=== PATIENT | female | born 1950 | race Caucasian/White ===

== ENCOUNTER 2017-10-12 16:18 | Emergency (ER) | payer MEDICARE ==
[2017-10-12 18:57] LABS: Urine Bacteria Absent (Absent); Urine Bilirubin Negative (Negative); Urine Glucose Negative (Negative); Urine Nitrite Negative (Negative)
[2017-10-12 18:58] LABS: Hematocrit 29 % (35-47); Hemoglobin 9.5 g/dl (12.0-16.0); Mean Corpuscular HGB Conc 33 g/dl (31-36); Mean Corpuscular Hemoglobin 27 pg (27-31); Mean Corpuscular Volume 83 fL (80-97); Mean Platelet Volume 8 um3 (7.4-10.4); Red Cell Distribution Width 13 % (10.5-15); White Blood Count 4.9 10^3/ul (3.5-10.8)
[2017-10-12 19:13] LABS: Albumin 3.4 g/dL (3.2-5.2); BUN/Creatinine Ratio 18.7 (8-20); C Reactive Protein 111.97 mg/L (< 5.00); Calcium 9.2 mg/dL (8.6-10.3); EGFR African American 79.1 (>60); EGFR Non-African American 61.5 (>60); Globulin 3.8 g/dL (2-4); Magnesium 2.2 mg/dL (1.9-2.7); Potassium 3.4 mmol/L (3.5-5.0); Total Bilirubin 0.4 mg/dL (0.2-1.0); Total Protein 7.2 g/dL (6.4-8.9)
[2017-10-12 19:14] LABS: Troponin I 0.01 ng/mL (<0.04)
[2017-10-12] MEDS ORDERED: NS 0.9% 1000 ML*IV.FLUID IV ONE (19:24)
[2017-10-12 20:15] LABS: Erythrocyte Sed Rate 120 mm/Hr (0-40)
--- NOTE | 2017-10-12 21:10 | RAD ---
INDICATION: Abdominal pain. Ascites . Breast cancer. No metastasis. COMPARISON: CT September 29, 2017; ultrasound June 04, 2016 TECHNIQUE: Longitudinal and transverse scans of the right upper quadrant were obtained. Doppler interrogation of the hepatic and portal venous system was performed. FINDINGS: Liver: The liver is diffusely heterogeneous in echotexture. There is a left hepatic lobe lesion (medial segment) which is may represent a cyst. Given the clinical history, metastasis is not absolutely excluded. There has been interval increase in size of this lesion which currently measures 1.1 x 0.8 x 1.0 cm, formerly 0.7 cm in greatest dimension.The liver measures 16 cm in cephalocaudal dimension. Vessels: There is normal hepatic and portal venous flow. Bile ducts: There is no evidence of intrahepatic or extrahepatic ductal dilatation. The common duct measures 0.4 cm. Gallbladder: The sonographic appearance of the gallbladder is normal. There is no evidence of cholelithiasis, thickening of the gallbladder wall, or pericholecystic fluid. Pancreas: The visualized pancreas appears normal Right kidney: There is renal parenchymal thinning. There are no masses or calculi. There is no evidence of hydronephrosis. The right kidney measures 10.3 x 3.4 x 3.4 cm. IVC and aorta: The aorta and superior vena cava appear normal. Fluid: There is ascites. Other: None. IMPRESSION: HETEROGENEOUS LIVER WITH ENLARGING HYPOECHOIC LESION. THIS MAY OR PRESENT A CYST (SEE ABOVE). ASCITES.
[2017-10-12] MEDS ORDERED: Potassium Chlor TAB* 20 MEQ TAB.ER PO ONE (22:02)
--- NOTE | 2017-10-12 22:21 | ED ---
Raymundo Silva Nilda, scribed for France Cee MD on 10/12/17 at 1909 . Complex/Multi-Sys Presentation - HPI Summary HPI Summary: This patient is a 67 year old F presenting to [facility] with a chief complaint of feeling rotten for the past 2 weeks. On 10/06/17, pt woke up with tachycardia. Pt states she has had tachycardia and constant nonproductive cough for the past two weeks. Since 10/08/17, pt notes she has been waking up in a pool of sweat. Patient reports hemorrhoids, sporadic diarrhea, cough, fever (101 F, yesterday ), throat tightness, intermittent mild abd pain (3/10 in severity, currently), loss of appetite, dehydration, fungal infection on toe nails, muscle pain in LLE , and nausea. She denies hemoptysis and changes in breasts. Abd pain is aggravated by deep breaths and alleviated by nothing. Pt has known hx of ascites , has never had a peritoneal tap. Pt is allergic to IV CT contrast. Pt tried to go to Dr. Moss's office today, but saw that they were so busy, she left, and later decided to come to the ED because she stil did not feel well. 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 Moss's pt, has not started any chemo, has not had bxs of the bone mets), anemia, and hypokalemia. No PMHx CHF and TN. History of events: per pt, who is able to give very detailed and accurate hx with very accurate dates. On Sep 19, 1996 pt was diagnosed with left breast cancer which was treated with 2 rounds of chemo. May 01, 2015 Dr. Howard administered a CT that showed possible metastases of breast cancer. Dr. Moss (oncology) ordered bone scan that revealed metastasis to bone including sternum, pelvic area, and spine. Pt also saw Dr. Patten (pulmonary). February 2016, Dr. Calhoun (GI) saw pt. Pt has had previous appointments with Dr. Jarquin (Neuro) for muscle pain. April 2017, Dr. Guillermo (GI) noted a possible cyst on liver. On 09/22/17 Dr. Herrera ordered a blood draw for pt. On 09/29/[address] Moss (GI) ordered repeat CT of Chest and pelvic area. On 10/06/17 pt had a thyroid US. (pt has not had results of these last two studies discussed with her). - History Of Current Complaint Chief Complaint: EDGeneral Time Seen by Provider: 10/12/17 18:24 Hx Obtained From: Patient, Medical Records Onset/Duration: Sudden Onset, Lasting Days Timing: Constant Severity Currently: Mild - 3/10 in severity Severity Initially: Moderate Location: Pain At: - abd, muscles in LLE Character: Dull Aggravating Factor(s): Abd pain is aggravated by deep breaths Alleviating Factor(s): Abd pain alleviated by nothing Associated Signs And Symptoms: Positive: Weakness, Cough, Nausea, Diarrhea, Abdominal Pain, Decreased Oral Intake, Fever, Other - tachycardia, diaphoresis ( night sweats), hemorrhoids, sporadic diarrhea, cough, fever (101 F, yesterday), throat tightness, intermittent mild abd pain (3/10 in severity, currently), loss of appetite, dehydration, fungal infection on toe nails, muscle pain in LLE , and nausea. She denies hemoptysis and changes in breasts. Related History: Other - PMHx includes cysts, fibroids, left breast cancer ( receptor +) that has metastasized to bones in pelvic area, spine, and sternum, anemia, and low potassium. - Allergies/Home Medications Allergies/Adverse Reactions: Allergies Allergy/AdvReac Type Severity Reaction Status Date / Time Latex Allergy Severe Difficulty Verified 10/12/17 16:32 Breathing Cephalexin [From Keflex] Allergy Difficulty Verified 10/12/17 16:32 Breathing/Wheezing Codeine Allergy Headache Verified 10/12/17 16:32 Penicillins Allergy Difficulty Verified 10/12/17 16:32 Breathing/Wheezing Sulfa Antibiotics Allergy Hives Verified 10/12/17 16:32 Terfenadine [From Seldane] Allergy Hives Verified 10/12/17 16:32 Clarithromycin [From Biaxin] AdvReac See Comment Verified 10/12/17 16:32 Erythromycin AdvReac GI Upset Verified 10/12/17 16:32 Tetracycline AdvReac See Comment Verified 10/12/17 16:32 IV contrast Allergy Difficulty Uncoded 10/12/17 16:32 Breathing PMH/Surg Hx/FS Hx/Imm Hx Previously Healthy: No - metastatic breast CA Endocrine/Hematology History: Reports: Hx Thyroid Disease - nodules, Hx Anemia Denies: Hx Diabetes Cardiovascular History: Reports: Other Cardiovascular Problems/Disorders - low potassium Denies: Hx Congestive Heart Failure, Hx Hypertension, Hx Myocardial Infarction, Hx Pacemaker/ICD Respiratory History: Reports: Hx Asthma, Other Respiratory Problems/Disorders - has seen Dr. Patten GI History: Reports: Hx Gastroesophageal Reflux Disease, Other GI Disorders - ascites, hemorrhoids, fibroids History: Denies: Hx Dialysis, Hx Renal Disease Sensory History: Denies: Hx Hearing Aid Psychiatric History: Denies: Hx Panic Disorder - Cancer History Cancer Type, Location and Year: breast CA, metastasis to bone Hx Chemotherapy: Yes - BREAST Hx Radiation Therapy: No - Surgical History Surgery Procedure, Year, and Place: 09/1972 BENIGN LT BREAST TUMOR, 1971 TONSILS , 2003 EYE SURGERY WITH SCLERAL BUCKLE (PREVIOUSLY CLEARED REPORT IN OTHER FACILITY REPORTS), 02/01/04 HEART CATH WITH NO STENTS, LT BREAST BIOPSY, LT BREAST MASTECTOMY 1995, 02/2000 RT BREAST BIOPSY, BIOPSY ON RIGHT CLAVICLE Infectious Disease History: No Infectious Disease History: Denies: Traveled Outside the [place] in Last 30 Days - Family History Known Family History: Positive: Other - Father "strepto ananya" sepsis - Social History Alcohol Use: None Substance Use Type: Reports: None Smoking Status (MU): Never Smoked Tobacco Review of Systems Positive: Fever, Skin Diaphoresis, Other - dehydration Positive: Other - throat tightness Positive: Other - tachycardia Positive: Cough, Other - negative hemoptysis Positive: Abdominal Pain, Diarrhea, Nausea, Other - hemorrhoids, loss of appetite Positive: Other - LLE pain; negative changes in breasts Positive: Other - fungal infection on toe nails Neurological: Negative Psychological: Normal All Other Systems Reviewed And Are Negative: Yes Physical Exam Triage Information Reviewed: Yes Vital Signs On Initial Exam: Initial Vitals Temp Pulse Resp BP Pulse Ox 98.1 F 96 16 105/64 97 10/12/17 16:32 10/12/17 16:32 10/12/17 16:32 10/12/17 16:32 10/12/17 16:32 Vital Signs Reviewed: Yes Appearance: Positive: Well-Nourished, Ill-Appearing, Pain Distress Skin: Positive: Warm, Skin Color Reflects Adequate Perfusion, Other - s/p mastectomy but still with nipple on left breast. No masses or skin changes of left breast; fungal toenails bilat Head/Face: Positive: Normal Head/Face Inspection Eyes: Positive: EOMI, BRENDA, Conjunctiva Clear ENT: Positive: Pharynx normal, Other - dry mucosal membranes Neck: Positive: Supple, Nontender, No Lymphadenopathy, Other: - thyroid nonpalp Respiratory/Lung Sounds: Positive: Clear to Auscultation, Breath Sounds Present , Other - negative respiratory distress Cardiovascular: Positive: RRR, Other - brisk capillary refill, nml pulses, S1, S2. Negative: Murmur Abdomen Description: Positive: No Organomegaly, Soft, Other: - abd tender RUQ and mild diffuse tenderness of abd, no rebound; ascites not apparent by fluid wave. Negative: Bruit, CVA Tenderness (R), CVA Tenderness (L), Distended, Guarding, Hernia @, Hepatomegaly, McBurney's Point Tenderness, Peritoneal Signs , Pulsatile Mass, Splenomegaly Bowel Sounds: Positive: Present Musculoskeletal: Positive: Strength/ROM Intact, Other - no calf tenderness Neurological: Positive: Sensory/Motor Intact, Alert, Oriented to Person Place, Time, Facial Symmetry, Speech Normal, Other - normal muscle tone Psychiatric: Positive: Normal - Dieter Coma Scale Coma Scale Total: 15 Diagnostics - Vital Signs Vital Signs Temp Pulse Resp BP Pulse Ox 10/12/17 18:04 96 100 10/12/17 17:30 78 112/62 99 10/12/17 17:00 87 115/62 98 10/12/17 16:56 92 99 10/12/17 16:53 114/62 10/12/17 16:32 98.1 F 96 16 105/64 97 - Laboratory Lab Results: Lab Results 10/12/17 10/12/17 10/12/17 Range/Units 18:38 18:48 18:48 WBC (3.5-10.8) 10^3/ul RBC (4.0-5.4) 10^6/ul Hgb (12.0-16.0) g/dl Hct (35-47) % MCV (80-97) fL MCH (27-31) pg MCHC (31-36) g/dl RDW (10.5-15) % Plt Count (150-450) 10^3/ul MPV (7.4-10.4) um3 Neut % (Auto) (38-83) % Lymph % (Auto) (25-47) % [place] % (Auto) (1-9) % Eos % (Auto) (0-6) % Baso % (Auto) (0-2) % Absolute Neuts (auto) (1.5-7.7) 10^3/ul Absolute Lymphs (auto) (1.0-4.8) 10^3/ul Absolute Monos (auto) (0-0.8) 10^3/ul Absolute Eos (auto) (0-0.6) 10^3/ul Absolute Basos (auto) (0-0.2) 10^3/ul Absolute Nucleated RBC 10^3/ul Nucleated RBC % ESR (0-40) mm/Hr INR (Anticoag Therapy) (0.89-1.11) Sodium 136 (133-145) mmol/L Potassium 3.4 L (3.5-5.0) mmol/L Chloride 101 (101-111) mmol/L Carbon Dioxide 28 (22-32) mmol/L Anion Gap 7 (2-11) mmol/L BUN 17 (6-24) mg/dL Creatinine 0.91 (0.51-0.95) mg/dL Est GFR ( Amer) 79.1 (>60) Est GFR (Non-Af Amer) 61.5 (>60) BUN/Creatinine Ratio 18.7 (8-20) Glucose 106 H (70-100) mg/dL Lactic Acid (0.5-2.0) mmol/L Calcium 9.2 (8.6-10.3) mg/dL Magnesium 2.2 (1.9-2.7) mg/dL Total Bilirubin 0.40 (0.2-1.0) mg/dL AST 22 (13-39) U/L ALT 17 (7-52) U/L Alkaline Phosphatase 50 (34-104) U/L Total Creatine Kinase 40 (10-223) U/L Troponin I 0.01 (<0.04) ng/mL C-Reactive Protein 111.97 H (< 5.00) mg/L B-Natriuretic Peptide 154 H ( - 100) pg/mL Total Protein 7.2 (6.4-8.9) g/dL Albumin 3.4 (3.2-5.2) g/dL Globulin 3.8 (2-4) g/dL Albumin/Globulin Ratio 0.9 L (1-3) Amylase 27 L (29-103) U/L Lipase 36 (11.0-82.0) U/L Urine Color [place] Urine Appearance Cloudy Urine pH 5.0 (5-9) Ur Specific [place] 1.026 (1.010-1.030) Urine Protein 1+(30 mg/dl) H (Negative) Urine Ketones Negative (Negative) Urine Blood 1+ H (Negative) Urine Nitrate Negative (Negative) Urine Bilirubin Negative (Negative) Urine Urobilinogen Negative (Negative) Ur Leukocyte Esterase Trace H (Negative) Urine WBC (Auto) Trace(0-5/hpf) (Absent) Urine RBC (Auto) Trace(0-2/hpf) (Absent) Ur Squamous Epith Cells Present H (Absent) Amorphous Crystals Present H (Absent) Urine Bacteria Absent (Absent) Urine Glucose Negative (Negative) Influenza A (Rapid) (Negative) Influenza B (Rapid) (Negative) Group A Strep Rapid (Negative) 10/12/17 10/12/17 10/12/17 Range/Units 18:48 18:48 18:48 WBC 4.9 (3.5-10.8) 10^3/ul RBC 3.50 L (4.0-5.4) 10^6/ul Hgb 9.5 L (12.0-16.0) g/dl Hct 29 L (35-47) % MCV 83 (80-97) fL MCH 27 (27-31) pg MCHC 33 (31-36) g/dl RDW 13 (10.5-15) % Plt Count 401 (150-450) 10^3/ul MPV 8 (7.4-10.4) um3 Neut % (Auto) 74.7 (38-83) % Lymph % (Auto) 17.4 L (25-47) % [place] % (Auto) 7.3 (1-9) % Eos % (Auto) 0.3 (0-6) % Baso % (Auto) 0.3 (0-2) % Absolute Neuts (auto) 3.7 (1.5-7.7) 10^3/ul Absolute Lymphs (auto) 0.9 L (1.0-4.8) 10^3/ul Absolute Monos (auto) 0.4 (0-0.8) 10^3/ul Absolute Eos (auto) 0 (0-0.6) 10^3/ul Absolute Basos (auto) 0 (0-0.2) 10^3/ul Absolute Nucleated RBC 0 10^3/ul Nucleated RBC % 0.1 ESR 120 H (0-40) mm/Hr INR (Anticoag Therapy) 1.06 (0.89-1.11) Sodium (133-145) mmol/L Potassium (3.5-5.0) mmol/L Chloride (101-111) mmol/L Carbon Dioxide (22-32) mmol/L Anion Gap (2-11) mmol/L BUN (6-24) mg/dL Creatinine (0.51-0.95) mg/dL Est GFR ( Amer) (>60) Est GFR (Non-Af Amer) (>60) BUN/Creatinine Ratio (8-20) Glucose (70-100) mg/dL Lactic Acid 0.8 (0.5-2.0) mmol/L Calcium (8.6-10.3) mg/dL Magnesium (1.9-2.7) mg/dL Total Bilirubin (0.2-1.0) mg/dL AST (13-39) U/L ALT (7-52) U/L Alkaline Phosphatase (34-104) U/L Total Creatine Kinase (10-223) U/L Troponin I (<0.04) ng/mL C-Reactive Protein (< 5.00) mg/L B-Natriuretic Peptide ( - 100) pg/mL Total Protein (6.4-8.9) g/dL Albumin (3.2-5.2) g/dL Globulin (2-4) g/dL Albumin/Globulin Ratio (1-3) Amylase (29-103) U/L Lipase (11.0-82.0) U/L Urine Color Urine Appearance Urine pH (5-9) Ur Specific [place] (1.010-1.030) Urine Protein (Negative) Urine Ketones (Negative) Urine Blood (Negative) Urine Nitrate (Negative) Urine Bilirubin (Negative) Urine Urobilinogen (Negative) Ur Leukocyte Esterase (Negative) Urine WBC (Auto) (Absent) Urine RBC (Auto) (Absent) Ur Squamous Epith Cells (Absent) Amorphous Crystals (Absent) Urine Bacteria (Absent) Urine Glucose (Negative) Influenza A (Rapid) (Negative) Influenza B (Rapid) (Negative) Group A Strep Rapid (Negative) 10/12/17 10/12/17 Range/Units 19:51 19:52 WBC (3.5-10.8) 10^3/ul RBC (4.0-5.4) 10^6/ul Hgb (12.0-16.0) g/dl Hct (35-47) % MCV (80-97) fL MCH (27-31) pg MCHC (31-36) g/dl RDW (10.5-15) % Plt Count (150-450) 10^3/ul MPV (7.4-10.4) um3 Neut % (Auto) (38-83) % Lymph % (Auto) (25-47) % [place] % (Auto) (1-9) % Eos % (Auto) (0-6) % Baso % (Auto) (0-2) % Absolute Neuts (auto) (1.5-7.7) 10^3/ul Absolute Lymphs (auto) (1.0-4.8) 10^3/ul Absolute Monos (auto) (0-0.8) 10^3/ul Absolute Eos (auto) (0-0.6) 10^3/ul Absolute Basos (auto) (0-0.2) 10^3/ul Absolute Nucleated RBC 10^3/ul Nucleated RBC % ESR (0-40) mm/Hr INR (Anticoag Therapy) (0.89-1.11) Sodium (133-145) mmol/L Potassium (3.5-5.0) mmol/L Chloride (101-111) mmol/L Carbon Dioxide (22-32) mmol/L Anion Gap (2-11) mmol/L BUN (6-24) mg/dL Creatinine (0.51-0.95) mg/dL Est GFR ( Amer) (>60) Est GFR (Non-Af Amer) (>60) BUN/Creatinine Ratio (8-20) Glucose (70-100) mg/dL Lactic Acid (0.5-2.0) mmol/L Calcium (8.6-10.3) mg/dL Magnesium (1.9-2.7) mg/dL Total Bilirubin (0.2-1.0) mg/dL AST (13-39) U/L ALT (7-52) U/L Alkaline Phosphatase (34-104) U/L Total Creatine Kinase (10-223) U/L Troponin I (<0.04) ng/mL C-Reactive Protein (< 5.00) mg/L B-Natriuretic Peptide ( - 100) pg/mL Total Protein (6.4-8.9) g/dL Albumin (3.2-5.2) g/dL Globulin (2-4) g/dL Albumin/Globulin Ratio (1-3) Amylase (29-103) U/L Lipase (11.0-82.0) U/L Urine Color Urine Appearance Urine pH (5-9) Ur Specific [place] (1.010-1.030) Urine Protein (Negative) Urine Ketones (Negative) Urine Blood (Negative) Urine Nitrate (Negative) Urine Bilirubin (Negative) Urine Urobilinogen (Negative) Ur Leukocyte Esterase (Negative) Urine WBC (Auto) (Absent) Urine RBC (Auto) (Absent) Ur Squamous Epith Cells (Absent) Amorphous Crystals (Absent) Urine Bacteria (Absent) Urine Glucose (Negative) Influenza A (Rapid) Negative (Negative) Influenza B (Rapid) Negative (Negative) Group A Strep Rapid Negative (Negative) Result Diagrams: 10/12/17 18:48 10/12/17 18:48 Lab Statement: Any lab studies that have been ordered have been reviewed, and results considered in the medical decision making process. - EKG 1839 Cardiac Rate: NL EKG Rhythm: Sinus Rhythm - [address] Segment: Non-Specific EKG Interpretation: nl AV, nl IV, nl QTc, nl Langston, no acute change. EKG Comparison: No Significant Change - from 03/12/16 EKG - Additional Comments Diagnostic Additional Comments: Abd US, per radiologist, reveals HETEROGENEOUS LIVER WITH ENLARGING HYPOECHOIC LESION. THIS MAY OR PRESENT A CYST (SEE ABOVE). ASCITES. ED physician has reviewed this radiology report and agrees. Re-Evaluation - Re-Evaluation First Eval Re-Evaluation Time: 22:35 Change: Improved Comment: Pain is controlled. HR 87 bpm and BP 122/55. Pt remains afeb. Advised of Dr. Nguyen's advice to F/u with Dr. Moss in 1-2 days. Pt is agreeable to D/ C with a follow up with Dr. Moss. Complex Multi-Symp Course/Dx Assessment/Plan: This patient is a 67 year old F presenting to [facility] with a chief complaint of "feeling rotten" for the past 2 weeks. PMHx left breast cancer with metastases to bones in pelvic area, spine, and sternum, anemia, and hypokalemia. Pt has ascites. Reports fever and tachycardia, not documented in ED. Medications and allergies reviewed this visit. Pending labs and US Abd. CT not done as pt just had CT abd on 09/29/17. Negative influenza and strep tests. An EKG reveals NSR, 78 bpm, nl AV, nl IV, nl QTc, nl Langston, nonspecic ST , no acute change. No significant changes from prior EKG on 03/12/16. Abd US, per radiologist, reveals HETEROGENEOUS LIVER WITH ENLARGING HYPOECHOIC LESION. THIS MAY OR PRESENT A CYST (SEE ABOVE). ASCITES. ED physician has reviewed this radiology report and agrees. Pt is stable and will be D/C with Dx of Metastatic breast cancer, ascites, abd pain, anemia, and hypokalemia. Pt advised to follow up with Dr. Moss. Pt understands and is agreeable with this plan. - Diagnoses Differential Diagnoses/HQI/PQRI: Cardiac Ischemia, Metabolic Abnormality, Sepsis , Urinary Tract Infection, Other - spontaneous bacterial peritonitis, CHF, dehydration Provider Diagnoses: Metastatic breast cancer, Ascites, Abdominal pain, Anemia, Hypokalemia - Physician Notifications Discussed Care Of Patient With: Sandra Carlos - have pt follow up with Dr. Moss Time Discussed With Above Provider: 22:00 Instructed by Provider To: Have Pt Call For Appt. Discharge - Discharge Plan Condition: Stable Disposition: HOME Patient Education Materials: Hypokalemia (ED), Ascites (ED), Abdominal Pain (ED ), Anemia (ED) Referrals: Yuridia Herrera MD [Primary Care Provider] - 2 Days Additional Instructions: We gave you one dose of potassium 40 meQ tonight. We also gave you a copy of your labs, your recent CT, thyroid ultrasound and tonight's ultrasound of the right upper quadrant. You should follow up with Dr. Garbo, tomorrow or KAREEN. We did talk to Dr. Sandra Carlos, covering for Dr. Moss, about your care tonight. RETURN TO THE EMERGENCY DEPARTMENT FOR CHANGING OR WORSENING SYMPTOMS. The documentation as recorded by the Raymundo marte Nilda accurately reflects the service I personally performed and the decisions made by me, France Cee MD.
[2017-10-12 23:03] VITALS: BP 122/55
== END 2017-10-12 22:55 | disposition home or self-care (01) ==
LOC: ED 16:18
DX: C80.1 Malignant (primary) neoplasm, unspecified (principal); R10.9 Unspecified abdominal pain; R18.8 Other ascites; D64.9 Anemia, unspecified; E87.6 Hypokalemia; R19.7 Diarrhea, unspecified; R00.0 Tachycardia, unspecified; R63.0 Anorexia; R50.9 Fever, unspecified; E86.0 Dehydration; R11.0 Nausea
CPT/HCPCS: 36415; 76705; 80053; 81003; 81015; 82150; 82550; 83605; 83690; 83735; 83880; 84484; 85025; 85610; 85652; 86140; 87040; 87086; 87502; 87651; 93005; 99283; A9270-GY

== ENCOUNTER 2017-10-18 14:51 | Emergency (ER) | payer MEDICARE ==
[2017-10-18 18:07] VITALS: BP 102/46
[2017-10-18 18:18] LABS: Hematocrit 31 % (35-47); Hemoglobin 10.3 g/dl (12.0-16.0); Mean Corpuscular HGB Conc 33 g/dl (31-36); Mean Corpuscular Hemoglobin 27 pg (27-31); Mean Corpuscular Volume 82 fL (80-97); Mean Platelet Volume 8 um3 (7.4-10.4); Red Blood Count 3.78 10^6/ul (4.0-5.4); Red Cell Distribution Width 13 % (10.5-15)
[2017-10-18 18:20] LABS: Urine Bacteria Absent (Absent); Urine Bilirubin Negative (Negative); Urine Glucose Negative (Negative); Urine Nitrite Negative (Negative)
[2017-10-18 18:25] LABS: Albumin 3.7 g/dL (3.2-5.2); BUN/Creatinine Ratio 13.2 (8-20); C Reactive Protein 49.45 mg/L (< 5.00); Calcium 9.2 mg/dL (8.6-10.3); EGFR African American 79.1 (>60); EGFR Non-African American 61.5 (>60); Globulin 4.1 g/dL (2-4); Potassium 3.4 mmol/L (3.5-5.0); Total Bilirubin 0.3 mg/dL (0.2-1.0); Total Protein 7.8 g/dL (6.4-8.9)
--- NOTE | 2017-10-20 15:20 | ED ---
Blanco Silva Gabriel, scribed for Luis Wells MD on 10/18/17 at 1734 . Abdominal Pain/Female - HPI Summary HPI Summary: This patient is a 67 year old F presenting to [facility] with a chief complaint of ABD pain since earlier today. The patient rates the pain 8/10 in severity. Patient reports weakness in extremities, STALEY, abd distension, and constipation. - History of Current Complaint Chief Complaint: EDAbdPain Stated Complaint: WEAKNESS,NAUSEA,PAIN ALL OVER Time Seen by Provider: 10/18/17 17:12 Hx Obtained From: Patient Onset/Duration: Still Present Timing: Constant Severity Currently: Severe Pain Intensity: 8 Pain Scale Used: 0-10 Numeric Associated Signs and Symptoms: Positive: Other: - STALEY, abd distension, weakness in extremites Allergies/Adverse Reactions: Allergies Allergy/AdvReac Type Severity Reaction Status Date / Time Latex Allergy Severe Difficulty Verified 10/16/17 12:21 Breathing Cephalexin [From Keflex] Allergy Difficulty Verified 10/16/17 12:21 Breathing/Wheezing Codeine Allergy Headache Verified 10/16/17 12:21 Penicillins Allergy Difficulty Verified 10/16/17 12:21 Breathing/Wheezing Sulfa Antibiotics Allergy Hives Verified 10/16/17 12:21 Terfenadine [From Seldane] Allergy Hives Verified 10/16/17 12:21 Clarithromycin [From Biaxin] AdvReac See Comment Verified 10/16/17 12:21 Erythromycin AdvReac GI Upset Verified 10/16/17 12:21 Tetracycline AdvReac See Comment Verified 10/16/17 12:21 IV contrast Allergy Difficulty Uncoded 10/16/17 12:21 Breathing PMH/Surg Hx/FS Hx/Imm Hx Previously Healthy: No Endocrine/Hematology History: Reports: Hx Anemia Denies: Hx Diabetes Cardiovascular History: Reports: Other Cardiovascular Problems/Disorders - low potassium Denies: Hx Congestive Heart Failure, Hx Hypertension - HAD OCCASIONS WHERE IT RISES, Hx Myocardial Infarction, Hx Pacemaker/ICD Respiratory History: Reports: Hx Asthma, Other Respiratory Problems/Disorders - ASTHMA GI History: Comment Only: Other GI Disorders - GERD, hemmroids, cysts, fibroids History: Denies: Hx Dialysis, Hx Renal Disease Sensory History: Denies: Hx Hearing Aid Psychiatric History: Denies: Hx Panic Disorder - Cancer History Cancer Type, Location and Year: breast CA, metastasis to bone Hx Chemotherapy: Yes - BREAST Hx Radiation Therapy: No - Surgical History Surgery Procedure, Year, and Place: 09/1972 BENIGN LT BREAST TUMOR, 1971 TONSILS , 2003 EYE SURGERY WITH SCLERAL BUCKLE (PREVIOUSLY CLEARED REPORT IN OTHER FACILITY REPORTS), 02/01/04 HEART CATH WITH NO STENTS, LT BREAST BIOPSY, LT BREAST MASTECTOMY 1995, 02/2000 RT BREAST BIOPSY, BIOPSY ON RIGHT CLAVICLE Infectious Disease History: No Infectious Disease History: Denies: Traveled Outside the [place] in Last 30 Days - Family History Known Family History: Positive: Other - Father strepto ananya - Social History Alcohol Use: None Substance Use Type: Reports: None Smoking Status (MU): Never Smoked Tobacco Review of Systems Negative: Fever Positive: Abdominal Pain, Other - abd distension and constipation Positive: Headache All Other Systems Reviewed And Are Negative: Yes Physical Exam - Summary Physical Exam Summary: VITAL SIGNS: Reviewed. GENERAL: Patient is a well-developed and nourished female who is lying comfortable in the stretcher. ~Patient is not in any acute respiratory distress. HEAD AND FACE: Normocephalic and atraumatic. EYES: PERRLA, EOMI x 2, No injected conjunctiva. EARS: Hearing grossly intact. Ear canals and tympanic membranes are WNL. MOUTH: Oropharynx within normal limits. NECK: Supple, trachea is midline, no adenopathy, no JVD. CHEST: Symmetric, no tenderness at palpation LUNGS: Clear to auscultation bilaterally. No wheezing or crackles. CVS: RRR, S1 and S2 present, no murmurs or gallops appreciated. ABDOMEN: Soft, non-tender. No signs of distention. Positive bowel sounds. No rebound no guarding, and no masses palpated. No abdominal bruit or pulsations. EXTREMITIES: FROM in all major joints, no edema, no cyanosis or clubbing. NEURO: Alert and oriented x 3. No acute neurological deficits. Speech is normal. SKIN: Dry and warm Triage Information Reviewed: Yes Vital Signs On Initial Exam: Initial Vitals Temp Pulse Resp BP Pulse Ox 97.4 F 87 16 111/61 100 10/18/17 14:57 10/18/17 14:57 10/18/17 14:57 10/18/17 14:57 10/18/17 14:57 Vital Signs Reviewed: Yes Diagnostics - Vital Signs Vital Signs Temp Pulse Resp BP Pulse Ox 10/18/17 14:57 97.4 F 87 16 111/61 100 - Laboratory Result Diagrams: 10/18/17 17:58 10/18/17 17:58 Lab Statement: Any lab studies that have been ordered have been reviewed, and results considered in the medical decision making process. - EKG 17:51 Cardiac Rate: NL EKG Rhythm: Sinus Rhythm - at 75 BPM EKG Interpretation: No ST elevations, slight ST depressions in B 4,5,6 EKG Comparison: No Significant Change - in comparison to EKG from 10/12/17 Abdominal Pain Fem Course/Dx - Course Course Of Treatment: This patient is a 67 year old F presenting to [facility] with a chief complaint of ABD pain since earlier today. The patient rates the pain 8/ 10 in severity. Patient reports weakness in extremities, STALEY, abd distension, and constipation. . Test results with no significant abnormalities except for. mild chronic anemia. She recently have pelvic and ct 09/29/17 which had no significant abnormalities. I discussed patient care with Dr. Carlos who recommends to discharge her home and follow up with Dr. Moss in next couple days. - Diagnoses Provider Diagnoses: Abdominal pain, Weakness - Provider Notifications Discussed Care Of Patient With: Sandra Carlos Time Discussed With Above Provider: 17:39 Instructed by Provider To: Other - We discussed patient care with Dr. Carlos and they recommended discharging the patient home because she was called the patient in to her office several times and she doesnt come. Discharge - Discharge Plan Condition: Stable Disposition: HOME Patient Education Materials: Abdominal Pain (ED) Referrals: Manuel Moss MD [Medical Doctor] - 3 Days Yuridia Herrera MD [Primary Care Provider] - Additional Instructions: RETURN TO THE EMERGENCY DEPARTMENT FOR CHANGING OR WORSENING SYMPTOMS. The documentation as recorded by the Blanco marte Gabriel accurately reflects the service I personally performed and the decisions made by , Luis Wells MD.
== END 2017-10-18 19:23 | disposition home or self-care (01) ==
LOC: ED 14:51
DX: R10.9 Unspecified abdominal pain (principal); R51 Headache; R14.0 Abdominal distension (gaseous)
CPT/HCPCS: 36415; 80053; 81003; 81015; 83690; 85025; 86140; 93005; 99282

== ENCOUNTER 2017-12-04 15:43 | Emergency (ER) | payer MEDICARE ==
[2017-12-04 16:56] LABS: ABS Basophils 0 10^3/ul (0-0.2); ABS Eosinophils 0 10^3/ul (0-0.6); ABS Monocytes 0.4 10^3/ul (0-0.8); ABS Neutrophils 2.9 10^3/ul (1.5-7.7); ABS Nucleated RBC 0 10^3/ul; Eosinophil % 0.5 % (0-6); Hematocrit 29 % (35-47); Hemoglobin 9.4 g/dl (12.0-16.0); Lymphocyte % 21.9 % (25-47); Mean Corpuscular HGB Conc 33 g/dl (31-36); Mean Corpuscular Hemoglobin 27 pg (27-31); Mean Corpuscular Volume 82 fL (80-97); Mean Platelet Volume 8 um3 (7.4-10.4); Nucleated Red Blood Cells % 0; Platelet Count 344 10^3/ul (150-450); Red Blood Count 3.52 10^6/ul (4.0-5.4); Red Cell Distribution Width 15 % (10.5-15); White Blood Count 4.3 10^3/ul (3.5-10.8)
--- NOTE | 2017-12-04 17:17 | RAD ---
INDICATION: Chest pain and shortness of breath COMPARISON: Chest x-ray dated May 01, 2015 TECHNIQUE: PA and lateral views of the chest were obtained. FINDINGS: The heart and mediastinum are normal in size and contour. Overlying the left mid level lung is a 1.3 cm nodule unchanged since the May 01, 2015 chest x-ray. A pulmonary nodule identified on the previous chest x-ray is not well seen today. The lungs are otherwise grossly clear. There is no evidence of large pleural effusion. Visualized bones are normal for the patient's age. There is no radiographic evidence of free air beneath the diaphragm IMPRESSION: 1.3 CM PULMONARY NODULE OVERLYING THE LOWER RIGHT LUNG UNCHANGED SINCE THE MAY 01, 2015 CHEST X-RAY IN THIS OTHERWISE NONACUTE CHEST X-RAY.
[2017-12-04 17:22] LABS: EGFR Non-African American 63.9 (>60)
[2017-12-04 17:28] LABS: INR 0.98 (0.77-1.02)
--- NOTE | 2017-12-04 20:58 | RAD ---
Indication: Tachycardia and shortness of breath Comparison: Similar examination May 01, 2015 that yielded a low probability scan. Chest x-ray dated December 04, 2017 Technique: Following the administration of 15.3 mCi of Xenon gas, ventilation images were obtained in multiple projections. Following the administration of 6.05 mCi of Tc-99m macroaggregated albumin, perfusion images were obtained in multiple projections. Report: The ventilation pattern is uniform with no evidence of air trapping. Negative for segmental or subsegmental perfusion defects. IMPRESSION: Low probability for pulmonary embolism.
[2017-12-04 22:43] VITALS: BP 116/74
[2017-12-04 22:58] LABS: Urine Appearance Clear; Urine Blood Negative (Negative); Urine Color Straw; Urine Ketones Negative (Negative); Urine Protein Negative (Negative); Urine Specific Gravity 1.008 (1.010-1.030); Urine Urobilinogen Negative (Negative)
--- NOTE | 2017-12-09 17:17 | ED ---
Giancarlo Silva Thomas, scribed for Berto Swann on 12/04/17 at 1634 . HPI Chest Pain - HPI Summary HPI Summary: The patient is a 67 year old female who presents with chest pains described as tightness, shortness of breath, and dizziness that began today after a paracentesis procedure. She had a similar pain five weeks ago during her first paracentesis procedure, but the symptoms are more severe today. The chest tightness is exacerbated by standing. She additionally complains of a rapid heartbeat, weakness, swelling in both legs, and abnormal appetite and drinking that began last night. The patient has a history of breast cancer and anemia. - History of Current Complaint Chief Complaint: EDChestPainROMI Time Seen by Provider: 12/04/17 16:01 Hx Obtained From: Patient Onset/Duration: Started Weeks Ago - about 5 weeks ago, Still Present Timing: Constant Initial Severity: Moderate Current Severity: Moderate Pain Intensity: 6 Pain Scale Used: 0-10 Numeric Character: Tightness Aggravating Factor(s): Position Alleviating Factor(s): Nothing Associated Signs and Symptoms: Positive: Chest Pain, Weakness, Shortness of Breath, Edema - Allergy/Home Medications Allergies/Adverse Reactions: Allergies Allergy/AdvReac Type Severity Reaction Status Date / Time Latex Allergy Severe Difficulty Verified 12/04/17 12:25 Breathing Cephalexin [From Keflex] Allergy Difficulty Verified 12/04/17 12:25 Breathing/Wheezing Codeine Allergy Headache Verified 12/04/17 12:25 Naproxen Allergy GI Upset Verified 12/04/17 12:25 Penicillins Allergy Difficulty Verified 12/04/17 12:25 Breathing/Wheezing Sulfa Antibiotics Allergy Hives Verified 12/04/17 12:25 Terfenadine [From Seldane] Allergy Hives Verified 12/04/17 12:25 Clarithromycin [From Biaxin] AdvReac See Comment Verified 12/04/17 12:25 Erythromycin AdvReac GI Upset Verified 12/04/17 12:25 Tetracycline AdvReac See Comment Verified 12/04/17 12:25 IV contrast Allergy Difficulty Uncoded 12/01/17 15:32 Breathing Novacaine Allergy Tachycardia Uncoded 12/01/17 15:32 PMH/Surg Hx/FS Hx/Imm Hx Endocrine/Hematology History: Reports: Hx Anemia Denies: Hx Diabetes Cardiovascular History: Reports: Other Cardiovascular Problems/Disorders - low potassium Denies: Hx Congestive Heart Failure, Hx Hypertension - HAD OCCASIONS WHERE IT RISES, Hx Myocardial Infarction, Hx Pacemaker/ICD Respiratory History: Reports: Hx Asthma, Other Respiratory Problems/Disorders - ASTHMA GI History: Comment Only: Other GI Disorders - GERD, hemmroids, cysts, fibroids History: Denies: Hx Dialysis, Hx Renal Disease Sensory History: Denies: Hx Hearing Aid Psychiatric History: Denies: Hx Panic Disorder - Cancer History Cancer Type, Location and Year: breast CA, metastasis to bone Hx Chemotherapy: Yes - BREAST Hx Radiation Therapy: No - Surgical History Surgery Procedure, Year, and Place: 09/1972 BENIGN LT BREAST TUMOR, 1971 TONSILS , 2003 EYE SURGERY WITH SCLERAL BUCKLE (PREVIOUSLY CLEARED REPORT IN OTHER FACILITY REPORTS), 02/01/04 HEART CATH WITH NO STENTS, LT BREAST BIOPSY, LT BREAST MASTECTOMY 1995, 02/2000 RT BREAST BIOPSY, BIOPSY ON RIGHT CLAVICLE Infectious Disease History: No Infectious Disease History: Denies: Traveled Outside the [place] in Last 30 Days - Family History Known Family History: Positive: Other - Father strepto ananya - Social History Alcohol Use: None Substance Use Type: Reports: None Smoking Status (MU): Never Smoked Tobacco Review of Systems Positive: Palpitations, Chest Pain Positive: Shortness Of Breath Positive: Edema Neurological: Other - Dizziness Positive: Weakness All Other Systems Reviewed And Are Negative: Yes Physical Exam - Summary Physical Exam Summary: Appearance: Well appearing, no pain distress Skin: warm, dry, reflects adequate perfusion Head/face: normal Eyes: EOMI, BRENDA ENT: normal Neck: supple, non-tender Respiratory: CTA, breath sounds present Cardiovascular: RRR, pulses symmetrical Abdomen: non-tender, soft. She has a bandage over her abdomen. Extremities: Bilateral pedal edema. Bowel: present Musculoskeletal: normal, strength/ROM intact Neuro: normal, sensory motor intact, A&Ox3 Triage Information Reviewed: Yes Vital Signs On Initial Exam: Initial Vitals Temp Pulse Resp BP Pulse Ox 99.1 F 93 16 101/54 100 12/04/17 15:46 12/04/17 15:46 12/04/17 15:46 12/04/17 15:46 12/04/17 15:46 Vital Signs Reviewed: Yes Diagnostics - Vital Signs Vital Signs Temp Pulse Resp BP Pulse Ox 12/04/17 15:46 99.1 F 93 16 101/54 100 - Laboratory Result Diagrams: 12/04/17 16:46 12/04/17 16:46 Lab Statement: Any lab studies that have been ordered have been reviewed, and results considered in the medical decision making process. - Radiology CXR Xray Interpretation: Positive (See Comments) - 1.3 CM PULMONARY NODULE OVERLYING THE LOWER RIGHT LUNG UNCHANGED SINCE THE MAY 01, 2015 CHEST X-RAY IN THIS OTHERWISE NONACUTE CHEST X-RAY. Dr. Swann has reviewed this report. Radiology Interpretation Completed By: Radiologist - Additional Comments Diagnostic Additional Comments: VQ Scan. Interpreted by radiologist. Low probability for pulmonary embolism. Dr. Swann has reviewed this report. Chest Pain Course/Dx - Course Assessment/Plan: The patient has ascites and shortness of breath. The patient had paracentesis, 4.4 L taken out. Most probably the patient is symptomatic because of the paracentesis. The patient will follow up with primary care in three days. - Diagnoses Provider Diagnoses: Ascites, Shortness of breath - Provider Notifications Discussed Care Of Patient With: Jenaro Aquino Time Discussed With Above Provider: 19:06 Instructed by Provider To: Other - Dr. Aquino, radiology, recommends a VQ scan. Discharge - Discharge Plan Condition: Stable Disposition: HOME Patient Education Materials: Ascites (ED), Shortness of Breath (ED) Referrals: Yuridia Herrera MD [Primary Care Provider] - 3 Days Additional Instructions: Follow up with your primary care provider in the next three days. Return to the emergency room for any new or worsening symptoms. The documentation as recorded by the Giancarlo marte Thomas accurately reflects the service I personally performed and the decisions made by Hue matamoros Emmanuel.
== END 2017-12-04 22:47 | disposition home or self-care (01) ==
LOC: ED 15:43
DX: R18.8 Other ascites (principal); R06.02 Shortness of breath; R00.2 Palpitations; R07.9 Chest pain, unspecified; R53.1 Weakness; R60.9 Edema, unspecified; R42 Dizziness and giddiness
CPT/HCPCS: 36415; 71046; 78582; 80053; 81003; 83735; 83880; 84443; 84484; 85025; 85379; 85610; 93005; 99283; A9540; A9558

== ENCOUNTER 2018-01-12 17:57 | Inpatient (IN) | payer MEDICARE ==
[2018-01-12] MEDS ORDERED: Morphine INJ* 2 MG/ML 1 ML CARPUJECT IV PRN (18:29)
[2018-01-12] MEDS: NS 0.9% 1000 ML* 1,000 ML IV SCH (19:53)
[2018-01-12] MEDS: PROCHLORPERAZINE INJ 5 MG/ML 2 ML VIAL IV PRN (19:55)
[2018-01-12] MEDS: Enoxaparin(*) 40 MG/0.4 ML SYR SUBCUT SCH (20:14)
[2018-01-12 20:57] LABS: ABS Basophils 0 10^3/ul (0-0.2); ABS Eosinophils 0 10^3/ul (0-0.6); ABS Lymphocytes 0.4 10^3/ul (1.0-4.8); ABS Monocytes 0.1 10^3/ul (0-0.8); ABS Neutrophils 4.6 10^3/ul (1.5-7.7); ABS Nucleated RBC 0 10^3/ul; Eosinophil % 0.3 % (0-6); Hematocrit 34 % (35-47); Hemoglobin 11.2 g/dl (12.0-16.0); Lymphocyte % 8.2 % (25-47); Mean Corpuscular HGB Conc 33 g/dl (31-36); Mean Corpuscular Hemoglobin 27 pg (27-31); Mean Corpuscular Volume 83 fL (80-97); Mean Platelet Volume 8 um3 (7.4-10.4); Nucleated Red Blood Cells % 0; Platelet Count 428 10^3/ul (150-450); Red Blood Count 4.15 10^6/ul (4.0-5.4); Red Cell Distribution Width 15 % (10.5-15); White Blood Count 5.1 10^3/ul (3.5-10.8)
[2018-01-12 21:10] LABS: EGFR Non-African American 49.4 (>60)
[2018-01-12] MEDS: Ondansetron INJ* 2 MG/ML VIAL IV PRN (22:36)
[2018-01-13] MEDS: PROCHLORPERAZINE INJ 5 MG/ML 2 ML VIAL IV PRN ×2 (02:03→12:26)
[2018-01-13] MEDS: NS 0.9% 1000 ML* 1,000 ML IV SCH ×3 (03:39→22:02)
--- NOTE | 2018-01-13 08:10 | PN ---
Progress Note - Progress Note Date of Service: 01/13/18 SOAP: Subjective: no further vomiting since NGT placed. still not passing any gas from below and feels bloated. Objective: Vital Signs Temp Pulse Resp BP Pulse Ox 98.8 F 89 16 131/64 100 01/13/18 07:56 01/13/18 07:56 01/13/18 07:56 01/13/18 07:56 01/13/18 07:56 lying flat in nad ngt w greenish drainage perr eomi op-thrush cta bl distended, +fluid wave, dec bs 1+ le edema A+Ox3 nonfocal neurological exam Laboratory Results - last 24 hr 01/12/18 01/12/18 20:47 20:47 WBC 5.1 RBC 4.15 Hgb 11.2 L Hct 34 L MCV 83 MCH 27 MCHC 33 RDW 15 Plt Count 428 MPV 8 Neut % (Auto) 90.1 H Lymph % (Auto) 8.2 L [place] % (Auto) 1.2 Eos % (Auto) 0.3 Baso % (Auto) 0.2 Absolute Neuts (auto) 4.6 Absolute Lymphs (auto) 0.4 L Absolute Monos (auto) 0.1 Absolute Eos (auto) 0 Absolute Basos (auto) 0 Absolute Nucleated RBC 0 Nucleated RBC % 0 Sodium 134 Potassium 4.6 Chloride 101 Carbon Dioxide 26 Anion Gap 7 BUN 19 Creatinine 1.10 H Est GFR ( Amer) 63.5 Est GFR (Non-Af Amer) 49.4 BUN/Creatinine Ratio 17.3 Glucose 141 H Calcium 9.4 Total Bilirubin 0.40 AST 17 ALT 10 Alkaline Phosphatase 44 Total Protein 6.8 Albumin 3.3 Globulin 3.5 Albumin/Globulin Ratio 0.9 L Enoxaparin Sodium (Lovenox(*)) 40 mg SUBCUT Q24H [facility] Last Admin: 01/12/18 20:14 Dose: Not Given Sodium Chloride (Ns 0.9% 1000 Ml*) 1,000 mls @ 125 mls/hr IV PER RATE [facility] Last Admin: 01/13/18 03:39 Dose: 125 mls/hr Morphine Sulfate (Morphine Inj (Syringe)*) 2 mg IV Q4H PRN PRN Reason: PAIN - MILD Ondansetron HCl (Zofran Inj*) 4 mg IV Q6H PRN PRN Reason: NAUSEA Last Admin: 01/12/18 22:36 Dose: 4 mg Prochlorperazine Edisylate (Compazine Inj*) 10 mg IV Q6H PRN PRN Reason: NAUSEA/VOMITING Last Admin: 01/13/18 02:03 Dose: 10 mg Assessment: 67 yo F w recurrent ER+ breast cancer sp cycle 1 of palliative doxil 15 days ago presenting with a small bowel obstruction. Plan: -cont NGT drainage -cont NPO -cont IVFs -will likely do paracentesis tomorrow -encourage lovenox dvt prophylaxis -nystatin swish and spit for thrush -full code
[2018-01-13] MEDS: Ondansetron INJ* 2 MG/ML VIAL IV PRN ×2 (08:13→18:11)
[2018-01-13] MEDS: Nystatin SUSPENSION* 100000 UNITS/ML 5 ML UDC PO SCH ×5 (08:45→21:17)
[2018-01-13] MEDS: Enoxaparin(*) 40 MG/0.4 ML SYR SUBCUT SCH (21:16)
[2018-01-14] MEDS: Ondansetron INJ* 2 MG/ML VIAL IV PRN ×4 (00:45→20:25)
[2018-01-14] MEDS: NS 0.9% 1000 ML* 1,000 ML IV SCH ×3 (06:18→23:10)
[2018-01-14 06:34] LABS: ABS Basophils 0 10^3/ul (0-0.2); ABS Eosinophils 0 10^3/ul (0-0.6); ABS Lymphocytes 0.8 10^3/ul (1.0-4.8); ABS Monocytes 0.1 10^3/ul (0-0.8); ABS Neutrophils 2.3 10^3/ul (1.5-7.7); ABS Nucleated RBC 0 10^3/ul; Eosinophil % 0.4 % (0-6); Hematocrit 28 % (35-47); Hemoglobin 9.1 g/dl (12.0-16.0); Lymphocyte % 24.5 % (25-47); Mean Corpuscular HGB Conc 33 g/dl (31-36); Mean Corpuscular Hemoglobin 27 pg (27-31); Mean Corpuscular Volume 83 fL (80-97); Mean Platelet Volume 8 um3 (7.4-10.4); Nucleated Red Blood Cells % 0; Platelet Count 321 10^3/ul (150-450); Red Blood Count 3.37 10^6/ul (4.0-5.4); Red Cell Distribution Width 15 % (10.5-15); White Blood Count 3.2 10^3/ul (3.5-10.8)
[2018-01-14] MEDS: Nystatin SUSPENSION* 100000 UNITS/ML 5 ML UDC PO SCH ×4 (07:28→20:26)
--- NOTE | 2018-01-14 09:32 | PN ---
Progress Note - Progress Note Date of Service: 01/14/18 SOAP: Subjective: [This is a 67 yo female with BCA s/p 1 cycle of doxil 01/01/18 who presented with SBO. NGT in place. Patient reports no further n/v or abd pain. She may have had a small amount of flatus. Still feels bloated. Agreeable with plan for paracentesis today.] Objective: [ Gen: thin appearing 67 yo female in NAD, alert and talkative ENT: NGT in place Abd: pre-procedure abd is distended and diffusely, TTP. Post-procedure abd is decompressed, there is a focal, mobile mass that is TTP near the umbilicus. Skin: No rashes noted Paracentesis procedure note (procedure completed by Dr Sandra Carlos): Time out completed. Fluid pocket identified in L lateral region. Patient prepped and draped in a sterile fashion. 2% lidocaine used for local anesthesia. Catheter introduced and drained to vacutainer. 4L of yellow, slightly cloudy fluid evacuated from the abdomen. ] Assessment: [This is a 67 yo with recurrent ER+ BCA who completed cycle 1 of doxil 01/01/18 who presented with SBO.] Plan: [1. SBO - NGT in place, will trial enema to evacuate the bowel. Consider surgical consultation if no resolution. 2. Recurrent metastatic BCA with ascites - s/p paracentesis (4L ascitic fluid removed) for symptomatic relief (No clinical evidence of SBP). Anticipate adolph within the next 24-48h. 3. Thrush - cont nystatin] 4. DVT prophylaxis - Lovenox
[2018-01-14] MEDS ORDERED: Sodium Phosphate ADULT ENEMA* 118 ml bottle PR ONE (11:00)
[2018-01-14] MEDS: Enoxaparin(*) 40 MG/0.4 ML SYR SUBCUT SCH (20:26)
[2018-01-15] MEDS: PROCHLORPERAZINE INJ 5 MG/ML 2 ML VIAL IV PRN ×2 (00:27→11:46)
[2018-01-15] MEDS: NS 0.9% 1000 ML* 1,000 ML IV SCH (07:15)
[2018-01-15] MEDS: Ondansetron INJ* 2 MG/ML VIAL IV PRN ×2 (07:50→15:22)
[2018-01-15] MEDS: Nystatin SUSPENSION* 100000 UNITS/ML 5 ML UDC PO SCH ×4 (08:13→20:46)
[2018-01-15] MEDS ORDERED: Sodium Phosphate ADULT ENEMA* 118 ml bottle PR ONE (09:35)
[2018-01-15 10:45] LABS: ABS Basophils 0 10^3/ul (0-0.2); ABS Eosinophils 0 10^3/ul (0-0.6); ABS Lymphocytes 0.8 10^3/ul (1.0-4.8); ABS Monocytes 0.1 10^3/ul (0-0.8); ABS Nucleated RBC 0 10^3/ul; Hematocrit 29 % (35-47); Hemoglobin 9.3 g/dl (12.0-16.0); Lymphocyte % 27.3 % (25-47); Mean Corpuscular HGB Conc 32 g/dl (31-36); Mean Corpuscular Hemoglobin 27 pg (27-31); Mean Corpuscular Volume 84 fL (80-97); Mean Platelet Volume 8 um3 (7.4-10.4); Nucleated Red Blood Cells % 0; Platelet Count 290 10^3/ul (150-450); Red Blood Count 3.46 10^6/ul (4.0-5.4); Red Cell Distribution Width 15 % (10.5-15)
[2018-01-15 11:10] LABS: EGFR Non-African American 92.3 (>60)
--- NOTE | 2018-01-15 11:34 | RAD ---
INDICATION: Small bowel obstruction COMPARISON: January 12, 2017 TECHNIQUE: A single view of the abdomen is submitted. FINDINGS: Bones: There are no acute bony findings. Soft tissues: The soft tissues appear normal. The psoas margins are sharp. Bowel gas pattern: The bowel is not significantly distended with air within both the colon and small bowel. There is one small bowel loop left midabdomen which is mildly prominent measuring approximately 3 cm this could be secondary to a localized ileus. Calcifications: There are no abnormal calcifications. Other: None IMPRESSION: TECHNICALLY NONSPECIFIC BOWEL GAS PATTERN. SUGGEST FOLLOW-UP INDICATED
--- NOTE | 2018-01-15 16:40 | RAD ---
INDICATION: Evaluate for small bowel obstruction. Nausea, constipation, bloating. COMPARISON: January 15, 2018 abdomen radiograph. September 29, 2017 CT. TECHNIQUE: Multidetector CT images were obtained from the lung bases to the ischial tuberosities. Evaluation of the viscera is limited without IV contrast. Multiplanar reformation. REPORT: RIGHT large and LEFT small dependent pleural effusions with proportional atelectasis. 0.9 cm water density cyst at the LEFT medial hepatic segment without change. No CT abnormality of the gallbladder. Unremarkable pancreas and spleen. Tip of the NG tube at the level of the gastric cardia. No compelling CT abnormality of the unopacified alimentary tract. Negative for small or large bowel dilatation. Large diffuse water density ascites. Negative for free air or hernias. Normal adrenal glands. Negative for hydronephrosis. No suspicious finding along the course of the nondilated ureters. The urinary bladder is decompressed limiting assessment. Anteverted uterus with 5.3 cm densely calcified fibroid. The ovaries measuring approximate 4 cm bilaterally similar to the September 29, 2017 exam. No lymphadenopathy visualized. Normal diameter abdominal aorta and iliac arteries. Partially distended IVC. 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 No pathologic fracture evident. IMPRESSION: 1. New RIGHT larger than LEFT small dependent pleural effusions. 2. The nasogastric tube tip is at the gastric cardia and should be advanced. 3. Negative for bowel obstruction. 4. Large diffuse water density ascites increased over the prior exam. 5. As previously noted the ovaries appear prominent for age without significant change. 6. 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
[2018-01-15] MEDS ORDERED: TPN* 24 HR with Sodium Chloride Conc 23.4%* 100 MEQ, Potassium Chloride TPN 50 MEQ, Pot... CENT\\PICC SCH ×12 (17:00)
[2018-01-15] MEDS: Enoxaparin(*) 40 MG/0.4 ML SYR SUBCUT SCH (20:46)
[2018-01-16] MEDS ORDERED: Dextrose 50% Syringe 50 ML* 25 GM/50 ML SYRINGE IV PUSH PRN (00:04)
[2018-01-16] MEDS: Ondansetron INJ* 2 MG/ML VIAL IV PRN ×3 (00:05→14:52)
[2018-01-16] MEDS: Insulin LISPRO* 1 UNITS UNIT SUBCUT SCH ×2 (00:39→05:53)
[2018-01-16 06:59] LABS: ABS Basophils 0 10^3/ul (0-0.2); ABS Eosinophils 0 10^3/ul (0-0.6); ABS Lymphocytes 0.6 10^3/ul (1.0-4.8); ABS Monocytes 0.1 10^3/ul (0-0.8); ABS Neutrophils 1.4 10^3/ul (1.5-7.7); ABS Nucleated RBC 0 10^3/ul; Eosinophil % 2.1 % (0-6); Hematocrit 27 % (35-47); Lymphocyte % 28.3 % (25-47); Mean Corpuscular HGB Conc 34 g/dl (31-36); Mean Corpuscular Hemoglobin 28 pg (27-31); Mean Corpuscular Volume 82 fL (80-97); Mean Platelet Volume 8 um3 (7.4-10.4); Nucleated Red Blood Cells % 0.1; Platelet Count 266 10^3/ul (150-450); Red Blood Count 3.27 10^6/ul (4.0-5.4); Red Cell Distribution Width 15 % (10.5-15); White Blood Count 2.2 10^3/ul (3.5-10.8)
[2018-01-16 07:17] LABS: EGFR Non-African American 101.4 (>60)
[2018-01-16] MEDS ORDERED: Magnesium Sulf 4 GM/100 ML IV* 4,000 MG/100 ML BAG IVPB ONE (07:50)
[2018-01-16] MEDS ORDERED: KCL 20 MEQ/100 ML IVPREMIX* 20 MEQ/100 ML BAG IV ONE (07:50)
--- NOTE | 2018-01-16 07:52 | PN ---
Progress Note - Progress Note Date of Service: 01/16/18 SOAP: Subjective: feeling better! having BMs, tolerated liquids. mild intermittent nausea. + bloating. Objective: Vital Signs Temp Pulse Resp BP Pulse Ox 97.9 F 96 16 105/52 98 01/16/18 03:27 01/16/18 03:27 01/16/18 03:27 01/16/18 03:27 01/16/18 03:27 perr eomi op moist dec bs bases +fluid wave distended, mild ttp trace le edema A+Ox 3, nonfocal neurological exam Laboratory Results - last 24 hr 01/15/18 01/15/18 01/15/18 10:24 10:24 23:58 WBC 3.0 L RBC 3.46 L Hgb 9.3 L Hct 29 L MCV 84 MCH 27 MCHC 32 RDW 15 Plt Count 290 MPV 8 Neut % (Auto) 66.5 Lymph % (Auto) 27.3 [place] % (Auto) 4.7 Eos % (Auto) 1.0 Baso % (Auto) 0.5 Absolute Neuts (auto) 2.0 Absolute Lymphs (auto) 0.8 L Absolute Monos (auto) 0.1 Absolute Eos (auto) 0 Absolute Basos (auto) 0 Absolute Nucleated RBC 0 Nucleated RBC % 0 Sodium 139 Potassium 3.8 Chloride 112 H Carbon Dioxide 16 L Anion Gap 11 BUN 14 Creatinine 0.64 Est GFR ( Amer) 118.7 Est GFR (Non-Af Amer) 92.3 BUN/Creatinine Ratio 21.9 H Glucose 72 POC Glucose (mg/dL) 246 H Calcium 8.4 L Phosphorus 2.3 L Magnesium Total Bilirubin 0.40 AST 13 ALT 7 Alkaline Phosphatase 40 Total Protein 5.3 L Albumin 2.6 L Globulin 2.7 Albumin/Globulin Ratio 1.0 01/16/18 01/16/18 01/16/18 00:22 05:47 06:42 WBC 2.2 L RBC 3.27 L Hgb 9.0 L Hct 27 L MCV 82 MCH 28 MCHC 34 RDW 15 Plt Count 266 MPV 8 Neut % (Auto) 63.1 Lymph % (Auto) 28.3 [place] % (Auto) 6.1 Eos % (Auto) 2.1 Baso % (Auto) 0.4 Absolute Neuts (auto) 1.4 L Absolute Lymphs (auto) 0.6 L Absolute Monos (auto) 0.1 Absolute Eos (auto) 0 Absolute Basos (auto) 0 Absolute Nucleated RBC 0 Nucleated RBC % 0.1 Sodium Potassium Chloride Carbon Dioxide Anion Gap BUN Creatinine Est GFR ( Amer) Est GFR (Non-Af Amer) BUN/Creatinine Ratio Glucose POC Glucose (mg/dL) 243 H 165 H Calcium Phosphorus Magnesium Total Bilirubin AST ALT Alkaline Phosphatase Total Protein Albumin Globulin Albumin/Globulin Ratio 01/16/18 06:42 WBC RBC Hgb Hct MCV MCH MCHC RDW Plt Count MPV Neut % (Auto) Lymph % (Auto) [place] % (Auto) Eos % (Auto) Baso % (Auto) Absolute Neuts (auto) Absolute Lymphs (auto) Absolute Monos (auto) Absolute Eos (auto) Absolute Basos (auto) Absolute Nucleated RBC Nucleated RBC % Sodium 135 Potassium 3.5 Chloride 111 Carbon Dioxide 20 L Anion Gap 4 BUN 14 Creatinine 0.59 Est GFR ( Amer) 130.4 Est GFR (Non-Af Amer) 101.4 BUN/Creatinine Ratio 23.7 H Glucose 159 H POC Glucose (mg/dL) Calcium 8.2 L Phosphorus 1.6 L Magnesium 1.7 L Total Bilirubin 0.20 AST 14 ALT 6 L Alkaline Phosphatase 33 L Total Protein 4.7 L Albumin 2.2 L Globulin 2.5 Albumin/Globulin Ratio 0.9 L Enoxaparin Sodium (Lovenox(*)) 40 mg SUBCUT Q24H [facility] Last Admin: 01/15/18 20:46 Dose: Not Given Heparin Sodium (Porcine) (Heparin Flush Picc/Ml/Cvc(*)) 1 ml FLUSH 0600,1800 [facility] PRN Reason: Protocol Last Admin: 01/16/18 05:53 Dose: 1 ml Morphine Sulfate (Morphine Inj (Syringe)*) 2 mg IV Q4H PRN PRN Reason: PAIN - MILD Nystatin (Nystatin Suspension*) 500,000 units PO QID [facility] Stop: 01/20/18 08:11 Last Admin: 01/15/18 20:46 Dose: Not Given Ondansetron HCl (Zofran Inj*) 4 mg IV Q6H PRN PRN Reason: NAUSEA Last Admin: 01/16/18 00:05 Dose: 4 mg Prochlorperazine Edisylate (Compazine Inj*) 10 mg IV Q6H PRN PRN Reason: NAUSEA/VOMITING Last Admin: 01/15/18 11:46 Dose: 10 mg Assessment: 67 yo F w recurrent ER+ BCA on palliative Doxil admitted with a SBO which has resolved. We will try advancing her diet very slowly today and if tolerated can likely go home tomorrow. Plan: Hypokalemia/hypomagnesemia: replete IV today severe protein calorie malnutrition: related to cancer, sbo/poor PO intake advance diet today pancytopenia: chemotherapy induced, no need for intervention today thrush: improved with nystatin dvt prophylaxis: lovenox
[2018-01-16] MEDS: Nystatin SUSPENSION* 100000 UNITS/ML 5 ML UDC PO SCH ×4 (08:29→20:09)
[2018-01-16] MEDS: Enoxaparin(*) 40 MG/0.4 ML SYR SUBCUT SCH (18:59)
[2018-01-16] MEDS: PROCHLORPERAZINE INJ 5 MG/ML 2 ML VIAL IV PRN (20:05)
[2018-01-17] MEDS: Ondansetron INJ* 2 MG/ML VIAL IV PRN ×3 (00:51→16:43)
[2018-01-17] MEDS: PROCHLORPERAZINE INJ 5 MG/ML 2 ML VIAL IV PRN ×2 (04:10→19:13)
--- NOTE | 2018-01-17 07:34 | RAD ---
INDICATION: Intracranial injury. Evaluate for subdural hematoma COMPARISON: CT brain November 29, 2003 TECHNIQUE: Noncontrast axial source images were acquired from the skull base to the vertex. FINDINGS: Ventricles/sulci: The ventricles and cisterns are normal in size and configuration for age. Brain parenchyma: There is no focal parenchymal finding, evidence of intracranial mass, or intracranial mass effect. Intracranial hemorrhage:None. Extra-axial spaces: There are no abnormal extra axial fluid collections or evidence of extra-axial mass. Calvarium: There is no calvarial fracture or other calvarial abnormality. Scalp: There is no evidence of scalp or extracalvarial soft tissue abnormality. Paranasal sinuses/mastoid: There is left frontal sinusitis. Other: None. IMPRESSION: No acute intracranial findings. Frontal sinusitis
--- NOTE | 2018-01-17 08:07 | PN ---
Progress Note - Progress Note Date of Service: 01/17/18 SOAP: Subjective: tolerated diet yesterday, was feeling better, then got worsening nausea over night despite zofran and compazine. passing minimal gas from below. no vomiting but got up to go to the BR because she thought she would vomit and banged head and arm into wall. head CT done stat without bleed. she feels very weak this am that she relates to "all those things you are putting in my body, like the TPN and magnesium and potassium". not sleeping well because of nausea. Objective: Vital Signs Temp Pulse Resp BP Pulse Ox 98.3 F 106 16 113/61 99 01/17/18 07:04 01/17/18 07:04 01/17/18 07:04 01/17/18 07:04 01/17/18 07:04 ill appearing this am perr eomi op moist cta anteriorly slightly tachy distended, min ttp throughout, +fluid wave, dec bs no le edema A+O x3, nonfocal neurological exam Enoxaparin Sodium (Lovenox(*)) 40 mg SUBCUT Q24H [facility] Last Admin: 01/16/18 18:59 Dose: Not Given Heparin Sodium (Porcine) (Heparin Flush Picc/Ml/Cvc(*)) 1 ml FLUSH 0600,1800 [facility] PRN Reason: Protocol Last Admin: 01/17/18 05:59 Dose: 1 ml Lorazepam (Ativan Inj*) 0.5 mg IV PUSH Q4H PRN PRN Reason: nausea Morphine Sulfate (Morphine Inj (Syringe)*) 2 mg IV Q4H PRN PRN Reason: PAIN - MILD Nystatin (Nystatin Suspension*) 500,000 units PO QID [facility] Stop: 01/20/18 08:11 Last Admin: 01/16/18 20:09 Dose: Not Given Ondansetron HCl (Zofran Inj*) 4 mg IV Q6H PRN PRN Reason: NAUSEA Last Admin: 01/17/18 00:51 Dose: 4 mg Prochlorperazine Edisylate (Compazine Inj*) 10 mg IV Q6H PRN PRN Reason: NAUSEA/VOMITING Last Admin: 01/17/18 04:10 Dose: 10 mg Assessment: 67 yo F w metastatic ER+ BCA on doxil presenting with SBO symptoms. she was markedly improved yesterday but may have advanced her diet too quickly. We will make her NPO again and try bowel rest. She is not interested in a NGT or TPN right now unless absolutely necessary. I did try to convince her to try ativan for nausea but she is hesitant. I will get an abdominal XRAY to look for recurrent obstruction. Plan: -NPO again -will likely need paracentesis tomorrow -kub -ativan if accepts -if starts vomiting will need ngt again if agrees -lovenox sc encouraged, has been refusing full code
[2018-01-17] MEDS: LORazepam INJ* 2 MG/ML 1 ML VIAL IV PUSH PRN ×3 (08:49→21:30)
[2018-01-17] MEDS: Nystatin SUSPENSION* 100000 UNITS/ML 5 ML UDC PO SCH ×4 (09:06→19:09)
[2018-01-17 09:45] LABS: ABS Basophils 0 10^3/ul (0-0.2); ABS Eosinophils 0 10^3/ul (0-0.6); ABS Lymphocytes 0.5 10^3/ul (1.0-4.8); ABS Monocytes 0.1 10^3/ul (0-0.8); ABS Neutrophils 1.1 10^3/ul (1.5-7.7); ABS Nucleated RBC 0 10^3/ul; Eosinophil % 0.6 % (0-6); Hematocrit 34 % (35-47); Hemoglobin 10.7 g/dl (12.0-16.0); Lymphocyte % 28.7 % (25-47); Mean Corpuscular HGB Conc 31 g/dl (31-36); Mean Corpuscular Hemoglobin 27 pg (27-31); Mean Corpuscular Volume 85 fL (80-97); Mean Platelet Volume 8 um3 (7.4-10.4); Nucleated Red Blood Cells % 0.1; Platelet Count 296 10^3/ul (150-450); Red Blood Count 4.02 10^6/ul (4.0-5.4); Red Cell Distribution Width 16 % (10.5-15); White Blood Count 1.8 10^3/ul (3.5-10.8)
[2018-01-17 09:58] LABS: EGFR Non-African American 92.3 (>60)
--- NOTE | 2018-01-17 10:11 | RAD ---
INDICATION: Bowel obstruction COMPARISON: January 15, 2018 TECHNIQUE: A single view of the abdomen representing 2 images is submitted. FINDINGS: Bones: There are no acute bony findings. Soft tissues: The soft tissues appear normal. The psoas margins are sharp. Bowel gas pattern: There is a mildly prominent loop of small bowel bowel in the left mid abdomen. This measures 4 cm, formerly 3 cm. This could represent a closed loop obstruction or a localized ileus. There is a paucity of gas elsewhere within the bowel with a small amount of gas in a normal caliber colon. Calcifications: There are calcified uterine leiomyomas. Other: None IMPRESSION: MILD INTERVAL INCREASE IN SIZE IN A LOOP OF SMALL BOWEL IN LEFT MID ABDOMEN. CONSIDER CLOSE LOOP OBSTRUCTION VERSUS LOCALIZED ILEUS. SUGGEST CLOSE FOLLOW-UP VERSUS CT IMAGING WITH IV BUT WITHOUT ORAL CONTRAST.
[2018-01-17] MEDS ORDERED: NS 0.9% 1000 ML* 1,000 ML IV ONE (16:00)
[2018-01-17] MEDS: Enoxaparin(*) 40 MG/0.4 ML SYR SUBCUT SCH (19:09)
[2018-01-17] MEDS: Metoclopramide IV* 5 MG/ML 2 ML VIAL IV PRN (22:53)
[2018-01-18] MEDS: Ondansetron INJ* 2 MG/ML VIAL IV PRN ×4 (01:52→23:20)
[2018-01-18] MEDS: Metoclopramide IV* 5 MG/ML 2 ML VIAL IV PRN ×2 (04:38→13:45)
[2018-01-18 04:55] LABS: Hematocrit 31 % (35-47); Hemoglobin 10.1 g/dl (12.0-16.0); Mean Corpuscular HGB Conc 33 g/dl (31-36); Mean Corpuscular Hemoglobin 27 pg (27-31); Mean Corpuscular Volume 83 fL (80-97); Mean Platelet Volume 8 um3 (7.4-10.4); Platelet Count 278 10^3/ul (150-450); Red Blood Count 3.76 10^6/ul (4.0-5.4); Red Cell Distribution Width 15 % (10.5-15)
[2018-01-18 05:09] LABS: EGFR Non-African American 87.5 (>60)
[2018-01-18] MEDS: Nystatin SUSPENSION* 100000 UNITS/ML 5 ML UDC PO SCH ×4 (07:25→20:18)
--- NOTE | 2018-01-18 08:13 | PN ---
Progress Note - Progress Note Date of Service: 01/18/18 SOAP: Subjective: []Nausea, abdominal distension, has not vomited. Nausea medication not working. Has had small amount of gas. Feels very dry, ice chips help. No fever. Enoxaparin Sodium (Lovenox(*)) 40 mg SUBCUT Q24H [facility] Last Admin: 01/17/18 19:09 Dose: Not Given Heparin Sodium (Porcine) (Heparin Flush Picc/Ml/Cvc(*)) 1 ml FLUSH 0600,1800 [facility] PRN Reason: Protocol Last Admin: 01/18/18 04:38 Dose: 2 ml Lorazepam (Ativan Inj*) 0.5 mg IV PUSH Q4H PRN PRN Reason: nausea Last Admin: 01/17/18 21:30 Dose: 0.5 mg Metoclopramide HCl (Reglan Iv*) 10 mg IV Q6H PRN PRN Reason: NAUSEA Last Admin: 01/18/18 04:38 Dose: 10 mg Morphine Sulfate (Morphine Inj (Syringe)*) 2 mg IV Q4H PRN PRN Reason: PAIN - MILD Nystatin (Nystatin Suspension*) 500,000 units PO QID [facility] Stop: 01/20/18 08:11 Last Admin: 01/18/18 07:25 Dose: Not Given Ondansetron HCl (Zofran Inj*) 4 mg IV Q6H PRN PRN Reason: NAUSEA Last Admin: 01/18/18 01:52 Dose: 4 mg Prochlorperazine Edisylate (Compazine Inj*) 10 mg IV Q6H PRN PRN Reason: NAUSEA/VOMITING Last Admin: 01/17/18 19:13 Dose: 10 mg Objective: [] Vital Signs Temp Pulse Resp BP Pulse Ox 98.7 F 114 18 128/61 99 01/18/18 03:09 01/18/18 03:09 01/18/18 03:09 01/18/18 03:09 01/18/18 03:09 HEENT - no oral lesions CTA RRR S1S2 distended, mild tenderness, hypertypanic with distended bowl. there is also fluid. Ext + Tr edema Assessment: 67 yo F w metastatic ER+ BCA on doxil, week 3 of cycle 1. She has oscillating symptoms of SBO likely from peritoneal disease. Had improved early in admission but progressive symptoms yesterday and worsening of XR. Plan: 1. Continue NPO and re-start TPN. 2. Consultation surgery. 3. CT IVC now. 4. Discussed possible surgery and ostomy. 5. Ability to continue Doxil unclear, discussed with patient and sister and will talk with Dr. Moss. 6. Hyperglycemia on TPN, 12 U insulin in bag.
[2018-01-18] MEDS: LORazepam INJ* 2 MG/ML 1 ML VIAL IV PUSH PRN ×2 (09:43→23:00)
[2018-01-18] MEDS: PROCHLORPERAZINE INJ 5 MG/ML 2 ML VIAL IV PRN ×3 (11:55→20:30)
--- NOTE | 2018-01-18 13:50 | RAD ---
INDICATION: Reassess small bowel obstruction. COMPARISON: January 17, 2018 abdomen radiograph and January 15, 2018 CT. TECHNIQUE: Multidetector CT images were obtained from the lung bases to the ischial tuberosities. Evaluation of the viscera is limited without IV contrast. Multiplanar reformation. REPORT: Moderate dependent RIGHT and small dependent LEFT pleural effusions with proportional atelectasis with interval increase on the RIGHT. Small pericardial effusion new compared with the prior exam. Large volume of diffuse ascites with interval increase. 0.8 cm water density cyst at the LEFT medial hepatic segment. Negative for biliary dilatation. No CT abnormality of the partially distended gallbladder, mildly atrophic pancreas, or spleen. No nasogastric tube present within the [id number]. Long segment dilatation of the small bowel loops most prominent at the LEFT mid abdomen measuring up to 3.7 cm diameter. No abrupt transition point identified. A few colonic diverticula are visualized at the sigmoid colon. No evidence for acute diverticulitis. The colon is largely decompressed. Negative for free air. Negative for hernias. Normal adrenal glands. Negative for obstructive uropathy. The ureters are not well visualized. Decompressed urinary bladder limiting assessment without gross abnormality. Calcified 5.5 cm uterine fibroid. Unchanged finding of symmetric mildly prominent uterus for age. Negative for lymphadenopathy. Normal diameter abdominal aorta and iliac arteries. Completely decompressed IVC indicating low intravascular volume. IMPRESSION: 1. Evidence for third spacing/anasarca and decreased intravascular volume. 2. Small bowel obstruction versus ileus. No discrete transition point identified. 3. Large ascites with interval increase. 4. Moderate RIGHT and small LEFT dependent pleural effusions with interval increase. 5. Small pericardial effusion is new. Results discussed with LISA Garcia 01/18/2018 9:33 AM EST
[2018-01-18] MEDS ORDERED: TPN* 24 HR with Sodium Chloride Conc 23.4%* 100 MEQ, Potassium Chloride TPN 50 MEQ, Pot... CENT\\PICC SCH ×13 (17:00)
[2018-01-18] MEDS: Enoxaparin(*) 40 MG/0.4 ML SYR SUBCUT SCH (20:19)
[2018-01-19] MEDS: Metoclopramide IV* 5 MG/ML 2 ML VIAL IV PRN ×2 (04:24→17:31)
[2018-01-19] MEDS: LORazepam INJ* 2 MG/ML 1 ML VIAL IV PUSH PRN ×3 (04:59→22:19)
[2018-01-19 05:21] LABS: ABS Basophils 0 10^3/ul (0-0.2); ABS Eosinophils 0 10^3/ul (0-0.6); ABS Lymphocytes 0.8 10^3/ul (1.0-4.8); ABS Monocytes 0.3 10^3/ul (0-0.8); ABS Nucleated RBC 0 10^3/ul; Eosinophil % 0.8 % (0-6); Hematocrit 30 % (35-47); Hemoglobin 9.7 g/dl (12.0-16.0); Lymphocyte % 37.7 % (25-47); Mean Corpuscular HGB Conc 33 g/dl (31-36); Mean Corpuscular Hemoglobin 27 pg (27-31); Mean Corpuscular Volume 82 fL (80-97); Mean Platelet Volume 8 um3 (7.4-10.4); Nucleated Red Blood Cells % 0.1; Platelet Count 288 10^3/ul (150-450); Red Blood Count 3.62 10^6/ul (4.0-5.4); Red Cell Distribution Width 15 % (10.5-15); White Blood Count 2.1 10^3/ul (3.5-10.8)
[2018-01-19] MEDS: Nystatin SUSPENSION* 100000 UNITS/ML 5 ML UDC PO SCH ×5 (07:11→23:01)
[2018-01-19] MEDS: PROCHLORPERAZINE INJ 5 MG/ML 2 ML VIAL IV PRN ×3 (08:07→20:26)
--- NOTE | 2018-01-19 09:41 | CONS ---
CC: Dr. Manuel Moss; Dr. Yuridia Herrera * SURGICAL CONSULTATION: DATE OF CONSULT: 01/18/18 HISTORY OF PRESENT ILLNESS: Ms. You is a 67-year-old female with history of breast cancer T2N1 disease status post mastectomy and currently on chemotherapy /who presented to the hospital on 01/12/18 as a direct admission for intractable vomiting and abdominal pain with a diagnosis of ileus and small bowel obstruction. The patient was followed by the oncology service and then seen by the hospitalist service in the weekend and sent for a CT scan. The patient was felt to have likely ileus, but was treated with NG tube placement. This had been removed as it was felt that it was not significantly draining. The patient has been unable to tolerate any p.o. mostly with significant episodes of emesis or at least nausea throughout and hardly significant episodes of severe nausea, minimal emesis. Her NG tube only drained according to report 380 over a time course that has been since removed and surgery consultation was requested on the hospital day 7 due to no improvement. The patient was sent for a repeat CT scan on 01/18/18. These images were reviewed as well and the initial one. The patient describes a recent history of abdominal bloating and the need for paracentesis on at least 2 occasions. The most recent one performed just under 2 weeks ago and approximately 4 L in lieu. The patient has abdominal pain mostly in the mid abdomen, it is exacerbated with movement. Her chief concern is her hiccups and intractable nausea. The patient has passed minimal flatus. She notes she had a bowel movement during this admission, but cannot remember which day. She is overall weak. Denies any fevers or chills. She does describe having the same abdominal pain and hiccups prior to the paracentesis that have occurred over the course of the last 8 weeks. However, at this time she describes it as worse in regards to her inability to tolerate any intake. PAST MEDICAL HISTORY: Reviewed and includes the breast cancer as well as asthma. No abdominal surgeries. MEDICATIONS: Reviewed. REVIEW OF SYSTEMS: No fevers or chills. No appetite. Weight loss in the last 6 months. Shortness of breath, abdominal pain and distension as described. Some history of uterine lesion that was thought to be biopsied, but this held off. The patient is being treated for breast CA. No bleeding or clotting disorders. PHYSICAL EXAM: She is afebrile; however, after our visit I reviewed the record and it does show the patient had elevated temperatures. Tachycardia and normotensive. Respiratory rate 16. Alert and oriented x3, resting in bed, in no apparent distress. Communicates easily. Lungs: Decreased inspiratory effort. Abdomen: Distended, tympanic, and a narrow area in the mid abdomen with laterally. Tender in the umbilical region with small umbilical hernia. No rebound tenderness. No tenderness to percussion. No groin hernias. No surgical scars. Rectal exam not performed. Extremities within normal limits. DIAGNOSTIC STUDIES/LAB DATA: Reviewed. Decreased white count, anemia. CT scan reviewed with the radiologist. An ileus versus small bowel obstruction with significant third spacing.. No transition point is identified. Ascites has increased. IMPRESSION: Most likely ileus, however, small bowel obstruction is not completely ruled out. My recommendation for Ms. You is paracentesis. If we pull the fluid off and see if her symptoms improve and the patient continues to pass gas and even have a bowel movement, then we will consider secondary ileus to her disease. If this does not improve, we can do diagnostic laparoscopy, possible laparotomy for evaluation. With her extensive ascites picture, this would be complicated healing out, but may be necessary. I described this to the patient. If we also move towards operative intervention, we will contact [facility] and review with Dr. Moss the possibility of biopsy. Fluid has been tested in the past and is consistent with breast CA according to the patient. I did not review these previous paracentesis cytology, but certainly if we go to the operating room, we can look for additional tissue sample. My inclination, however, is that the patient will show mild improvement with additional paracentesis, again we can work from there. We will look towards performing this tomorrow, 01/19/18. The patient is aware of this and understands. She has no additional questions. [id number]/[facility] #: [id number] RUPINDER
--- NOTE | 2018-01-19 11:40 | RAD ---
HISTORY: Ascites COMPARISONS: None TECHNIQUE: Multiple transverse and longitudinal centimeters were obtained of the abdomen for localization of ascites for paracentesis. FINDINGS: There is moderate to large amount of ascites. A spot was marked in the left lower quadrant for paracentesis. IMPRESSION: ASCITES
[2018-01-19] MEDS ORDERED: TPN* 24 HR with Sodium Chloride Conc 23.4%* 100 MEQ, Potassium Chloride TPN 50 MEQ, Pot... CENT\\PICC SCH ×13 (17:00)
[2018-01-19] MEDS: Ondansetron INJ* 2 MG/ML VIAL IV PRN (18:20)
[2018-01-19] MEDS: Enoxaparin(*) 40 MG/0.4 ML SYR SUBCUT SCH (22:45)
[2018-01-20] MEDS: LORazepam INJ* 2 MG/ML 1 ML VIAL IV PUSH PRN ×2 (02:59→12:20)
[2018-01-20] MEDS: Ondansetron INJ* 2 MG/ML VIAL IV PRN (03:00)
[2018-01-20 05:17] LABS: ABS Basophils 0 10^3/ul (0-0.2); ABS Eosinophils 0 10^3/ul (0-0.6); ABS Lymphocytes 0.5 10^3/ul (1.0-4.8); ABS Monocytes 0.4 10^3/ul (0-0.8); ABS Neutrophils 1.1 10^3/ul (1.5-7.7); ABS Nucleated RBC 0 10^3/ul; Eosinophil % 0.4 % (0-6); Hematocrit 30 % (35-47); Hemoglobin 9.7 g/dl (12.0-16.0); Mean Corpuscular HGB Conc 32 g/dl (31-36); Mean Corpuscular Hemoglobin 27 pg (27-31); Mean Corpuscular Volume 83 fL (80-97); Mean Platelet Volume 9 um3 (7.4-10.4); Nucleated Red Blood Cells % 0.1; Platelet Count 285 10^3/ul (150-450); Red Blood Count 3.63 10^6/ul (4.0-5.4); Red Cell Distribution Width 15 % (10.5-15)
[2018-01-20 05:30] LABS: EGFR Non-African American 107.7 (>60)
[2018-01-20] MEDS ORDERED: Alteplase (CATHFLO)* 2 MG VIAL IV ONE (09:13)
--- NOTE | 2018-01-20 10:20 | RAD ---
HISTORY: Small bowel obstruction COMPARISONS: January 17, 2018, CT dated January 18, 2015 VIEWS: Frontal views of the abdomen. FINDINGS: BOWEL: Again noted is a loop of mildly dilated small bowel within the left mid abdomen, similar to the previous examinations. CALCULI: Calcific uterine fibroid is noted. BONES AND SOFT TISSUES: Mild degenerative changes are noted. There is likely lesions of the left iliac wing corresponding to the previously described polyostotic metastatic disease. OTHER FINDINGS: The lung bases are not well visualized. This is a single supine examination, though there is no appreciable intraperitoneal gas. IMPRESSION: PERSISTENT DILATED LOOP OF SMALL BOWEL WITHIN THE MIDABDOMEN.
--- NOTE | 2018-01-20 10:28 | PRO ---
Cc: Manuel Moss MD; [facility]; Yuridia Herrera M.D. * PROGRESS NOTE AND PROCEDURE NOTE: DATE OF VISIT: 01/19/18 - ROOM #412 Ms. You was seen and evaluated, chart reviewed today. Her case discussed with Oncology. Patient continues to have abdominal discomfort, she feels somewhat worse today than yesterday. She continues with hiccups and nausea, but no vomiting. She is thirsty but not hungry. She remains on TPN. She is minimally ambulatory. PHYSICAL EXAM: T-max is 100.5, T-current 99.8, normotensive, heart rate in 100s to one-teens. O2 sat 98 on room air. Respiration rate is 17. She is alert and oriented x3. She is in no apparent distress. Abdomen: Tender, but without rebound or tenderness to percussion. Remains tympanic in the mid abdomen with dullness on the lateral aspects consistent with the known ascites. Bowel sounds are hypoactive throughout. LABORATORY DATA: Labs reviewed shows continued low white count 2.1, anemia. Chemistry panel shows decreased magnesium and phosphate with a glucose of 244 and albumin of 2.2. CT scan report reviewed with patient, significant third-space spacing, discussion of peritoneal fluid as well as pleural fluid is described. IMPRESSION: Ileus with small-bowel obstruction, small-bowel obstruction could be secondary to malignancy. My recommendation at this point, however, is to perform a paracentesis to see if patient shows some improvement. After describing the risks, benefits and alternatives to paracentesis, the patient agreed to sign consent. A time-out was performed. After patient was prepped and draped, the tuber machine cutter came in prior to this and marked the abdomen with me in the room, for the largest pocket of fluid. The point of intended needle insertion was injected with lidocaine. Skin incised and an 8-Citizen Of [place] paracentesis kit utilized to enter into the abdomen. Straw color fluid was removed. A portion was sent for culture and sensitivity and approximately 3300 cc was removed until there was no additional flow. Sterile dressing was applied. The patient tolerated the procedure well. PLAN: Observation, possibly allow her p.o. liquids later today with n.p.o. at midnight. I will reevaluate her in the morning and consider the possibility of diagnostic laparoscopy if there is no improvement to look for obstructing lesion. My inclination is that this is ileus secondary to disease and will not improve with surgical intervention. However, given that this is day 7 in the hospital, feel it might prove beneficial to at least perform a diagnostic laparoscopy. We will continue to follow closely. [id number]/[facility] #: [id number] RUPINDER
[2018-01-20] MEDS: PROCHLORPERAZINE INJ 5 MG/ML 2 ML VIAL IV PRN (10:36)
[2018-01-20] MEDS ORDERED: chlorproMAZINE INJ* 50 MG in NS 0.9% 50 ML* 50 ML IV ONE (11:00)
[2018-01-20] MEDS ORDERED: Scopolamine 1.5 mg* PATCH TRANSDERM SCH (11:00)
--- NOTE | 2018-01-20 11:06 | PN ---
Progress Note - Progress Note Date of Service: 01/20/18 SOAP: Subjective: Pt seen and examined. Case d/w oncology. Pt is s/p paracentesis- >3L removed. Pt still with hiccoughs, nausea, obstipation.. abdo pain improved. Objective: tm 100.7 tachycardic abdo: soft/ less distended. tympanic. hypoactive BS labs noted Assessment: abdo pain- Ileus vs SBO Plan: I recommend OR for diagnostic laparoscopy, possible laparotomy. This is a palliative procedure in this pt. If findings intraoperative show no mech obstruction, pt likely to go to hospice. She understands this. I discussed the r/b/a to procedure. Pt is leaning towards surgery, and wants to talk to her family first.
[2018-01-20] MEDS ORDERED: Gentamicin ADULT (*) 300 MG in NS 0.9% 100 ML* 100 ML IVPB ONE (15:00)
[2018-01-20] MEDS ORDERED: metroNIDAZOLE IV 500 MG/100ML* 500 MG/100 ML BAG IVPB ONE (15:00)
[2018-01-20] MEDS ORDERED: Sodium Citrate/Citric Acid* 15 ML UDC ONE (16:13)
[2018-01-20] MEDS ORDERED: Famotidine IV* 10 MG/ML 2 ML (20 mg) ONE (16:13)
[2018-01-20] MEDS ORDERED: Propofol* 10 MG/ML 20 ML BTL IV PUSH ONE (16:19)
[2018-01-20] MEDS ORDERED: Lidocaine 2% PF * 5 ML VIAL ONE (16:19)
[2018-01-20] MEDS ORDERED: Succinylcholine* 20 MG/ML 10 ML VIAL ONE (16:19)
[2018-01-20] MEDS ORDERED: Midazolam* 1 MG/ML 2 ML VIAL (2 MG) ONE (16:19)
[2018-01-20] MEDS ORDERED: fentaNYL* 50 MCG/ML 2 ML VIAL (100 MCG VIAL) ONE ×3 (16:19→17:41)
[2018-01-20] MEDS ORDERED: Bupivacaine 0.25% SDV* 30 ML ONE (16:30)
[2018-01-20] MEDS ORDERED: Famotidine IV* 10 MG/ML 2 ML (20 mg) IV SLOW PU ONE (16:38)
[2018-01-20] MEDS ORDERED: Sodium Citrate/Citric Acid* 15 ML UDC PO ONE (16:39)
[2018-01-20] MEDS ORDERED: Rocuronium* 10 MG/ML VIAL ONE (17:24)
[2018-01-20] MEDS ORDERED: fentaNYL* 50 MCG/ML 2 ML VIAL (100 MCG VIAL) IV PRN (17:53)
[2018-01-20] MEDS ORDERED: Acetaminophen IV 1GM/100ML * 10 MG/ML VIAL IVPB ONE (17:53)
[2018-01-20] MEDS ORDERED: Naloxone* 0.4 MG/ML 1 ML VIAL IV PRN (17:53)
[2018-01-20] MEDS ORDERED: Morphine INJ* 2 MG/ML 1 ML CARPUJECT IV PRN ×2 (17:53→20:38)
[2018-01-20] MEDS ORDERED: Phenylephrine INJ* 10 MG/ML 1 ML VIAL (10 MG) ONE (18:07)
--- NOTE | 2018-01-20 18:32 | OP ---
Operative Report - Blank - Operative Report Date of Operation: 01/20/18 Note: Preop Dx: SBO Postop Dx: same Procedure: Laparoscopy, converted to laparotomy Anesthesia: GET Surgeon: Lj Asst: LISA Licona; DONY Yen Fluids: 1500 ml EBL: < 50 ml Drains: none Specimen: none Findings: dictated
[2018-01-20] MEDS ORDERED: Acetaminophen IV 1GM/100ML * 100 ML ONE (19:46)
[2018-01-20] MEDS: TPN* 24 HR with Sodium Chloride Conc 23.4%* 100 MEQ, Potassium Chloride TPN 50 MEQ, Pot... CENT\\PICC SCH ×13 (20:34)
[2018-01-20] MEDS: Enoxaparin(*) 40 MG/0.4 ML SYR SUBCUT SCH (20:56)
[2018-01-20] MEDS ORDERED: NS 0.9% 1000 ML* 1,000 ML IV ONE (22:15)
[2018-01-21] MEDS: PROCHLORPERAZINE INJ 5 MG/ML 2 ML VIAL IV PRN ×3 (03:30→23:45)
[2018-01-21] MEDS: Ondansetron INJ* 2 MG/ML VIAL IV PRN ×2 (04:50→20:31)
[2018-01-21] MEDS: Acetaminophen SUPP* 650 MG SUPP PR PRN (05:42)
[2018-01-21 09:29] LABS: Hematocrit 29 % (35-47); Hemoglobin 9.5 g/dl (12.0-16.0); Mean Corpuscular HGB Conc 33 g/dl (31-36); Mean Corpuscular Hemoglobin 27 pg (27-31); Mean Corpuscular Volume 82 fL (80-97); Mean Platelet Volume 9 um3 (7.4-10.4); Platelet Count 267 10^3/ul (150-450); Red Cell Distribution Width 15 % (10.5-15); White Blood Count 2.1 10^3/ul (3.5-10.8)
--- NOTE | 2018-01-21 09:42 | PN ---
Progress Note - Progress Note Date of Service: 01/21/18 SOAP: Subjective: +abdominal discomfort but does not want to take any pain medications for it. feeling very weak. I discussed with Dr. aClhoun and unfortunately there was nothing that could be done intraoperatively as she basically had a frozen abdomen from tumor burden. He was unable to mobilize the bowel and closed her up. Objective: Vital Signs Temp Pulse Resp BP Pulse Ox 99.2 F 121 17 101/45 97 01/21/18 07:48 01/21/18 07:48 01/21/18 07:48 01/21/18 07:48 01/21/18 07:48 lying flat, uncomfortable appearing perr eom op very dry CTA ant tachy distended,midline incision with dressing clean,tender throughout no le edema sleepy but able to engage in conversation Active Medications Generic Name Dose Route Start Last Admin Trade Name Freq PRN Reason Stop Dose Admin Acetaminophen 650 mg 01/18/18 15:58 01/21/18 05:42 Tylenol Supp* MI 650 mg Q4H PRN Administration FEVER Enoxaparin Sodium 40 mg 01/12/18 20:00 01/20/18 20:56 Lovenox(*) SUBCUT 40 mg Q24H [facility] Administration Heparin Sodium (Porcine) 1 ml 01/15/18 18:00 01/21/18 05:31 Heparin Flush Picc/Ml/Cvc(*) FLUSH 1 ml 0600,1800 [facility] Administration Protocol Sodium Chloride 100 meq/ 2,353.7392 mls @ 98.021 mls/hr 01/20/18 17:00 20:34 Potassium Chloride 50 meq/ CENT\PICC 98.021 mls/hr Potassium Phosphate 20 mmole/ 1700 SHR[facility]HI Administration Calcium Gluconate 15 meq/ Protocol Magnesium Sulfate 15 meq/ Multivitamins 10 ml/ Trace Metals 1 ml/ Insulin Human Regular 12 units/ Dextrose 1, 000 ml/ Amino Acids 850 ml/ Sterile Water 150 ml/ Fat Emulsion Intravenous 250 ml/ Nutrition (Parenteral) Lorazepam 0.5 mg 01/17/18 08:00 01/20/18 12:20 Ativan Inj* IV PUSH 0.5 mg Q4H PRN Administration nausea Morphine Sulfate 2 mg 01/20/18 20:38 Morphine Inj (Syringe)* IV Q4H PRN PAIN Ondansetron HCl 4 mg 01/12/18 22:14 01/21/18 04:50 Zofran Inj* IV 4 mg Q6H PRN Administration NAUSEA Prochlorperazine Edisylate 10 mg 01/12/18 18:29 01/21/18 03:30 Compazine Inj* IV 10 mg Q6H PRN Administration NAUSEA/VOMITING Scopolamine 1 patch 01/20/18 11:00 01/20/18 12:18 Transderm-Scop 1.5 Mg Patch* TRANSDERM 1 patch Q72H [facility] Administration Assessment: 67 yo F w metastatic breast cancer presenting with a small bowel obstruction with significant tumor burden intra-abdominally that could not be surgically corrected. Given this I have recommended hospice. We discussed this at length , but in the end she asked to defer the conversation as she was feeling too overwhelmed. We will continue TPN today, but I would recommend hospice consult and comfort measures tomorrow if she is willing. I have encouraged her to use her pain medications if needed.
[2018-01-21 10:55] LABS: Monocytes % 20 % (0-7)
[2018-01-21] MEDS ORDERED: Magnesium Sulf 4 GM/100 ML IV* 4,000 MG/100 ML BAG IVPB ONE (11:30)
--- NOTE | 2018-01-21 15:09 | OP ---
AMENDED REPORT TO CORRECT ACCOUNT - ESIGNED BEFORE ADJUSTMENTS CC: Manuel Moss MD; Yuridia Herrera M.D. * DATE OF OPERATION: 01/20/18 - ROOM #412 DATE OF : 48 SURGEON: Sean Calhoun MD. NETSUITE CONSULTANT: LISA James. ANESTHESIOLOGIST: Dr. Kiersten Levy ANESTHESIA: General anesthesia. PRE-OP DIAGNOSIS: Abdominal pain, rule out small bowel obstruction. POST-OP DIAGNOSIS: Diffuse metastatic breast cancer to the abdomen. OPERATIVE PROCEDURE: Diagnostic laparoscopy, exploratory laparotomy. FINDINGS: Diffuse metastatic disease with peritoneal attachments, additional lesions and bulky disease throughout the pelvis and abdomen along with small bowel, colon and mesentry of both. SPECIMENS: None. ESTIMATED BLOOD LOSS: Minimal. FLUIDS: 1500 cc of crystalloid fluid given. CATHETER PLACED: A Allen catheter which remained at the end of surgery. INDICATIONS: Ms. You is a 67-year-old female who I had seen in consultation 2 days ago with complaints of abdominal pain; had been hospitalized for ileus, concern was the possibility of a small-bowel obstruction. The patient has been treated with breast cancer, T2N1M1 disease after undergoing multiple paracenteses revealing malignant cells. The patient underwent paracentesis yesterday with removal of over 3 L of fluid with no significant improvement, still remained mostly obstipated with hiccups and inability to tolerate any p.o. and after a careful discussion with patient in Oncology, I felt it prudent to at least look to rule out a small bowel obstruction secondary to metastatic disease or scarring with the possibility of a relieving an obstruction. I went over this in detail with the patient. The small likelihood of finding some resolvable disease and even possibly doing a bypass of the gut. The patient understood and signed consent. I did speak about the possibility of placing a gastrostomy at the time of surgery. She was adamant against any feeding tubes and so consent was only obtained for a diagnostic laparoscopy and possible laparotomy. DESCRIPTION OF PROCEDURE: The patient was identified in the preoperative area by the team. Anesthesia reviewed the case. She was taken to the operating room , placed on the operating table in supine position. General anesthesia was induced. An OG tube was placed and approximately 800 cc of gastric contents was removed. Allen catheter inserted. The patient received preoperative antibiotics and sequential devices were place on bilateral lower extremities. The patient's abdomen was prepped and draped in a standard surgical fashion and time-out was performed. A subcostal incision was made at the left upper quadrant. This was deepened down to the fascia and a Veress needle was inserted into the abdomen which was allowed to insufflate to a pressure of 15 mmHg. The patient tolerated the insufflation well. The Veress needle was removed and a 5-mm trocar was inserted at this site. The laparoscope was inserted through this. There was some scant ascites. The bowel appeared without evidence of necrosis. It was mildly dilated but with extensive peritoneal implants throughout the anterior abdominal wall as well as the bowel. Additional trocars were placed in the following positions: A 5 mm in the infraumbilical site and a 5 mm in the suprapubic area. Table was repositioned to right side up, Trendelenburg, we looked into the pelvis. We suctioned off ascites that was over the liver, in the pelvis, and throughout the gutter. I went to attempt to identify the cecum. This was matted down to the lateral wall without real visualization of this, given the overlying disease at this site. The small bowel at this area was tangled together and attached without any evidence of planes to open up. They were all attached to each other with multiple peritoneal disease. I was able to identify the transverse colon mesentry and made an attempt to sweep the small bowel off this, it had been adhered. This did not prove possible laparoscopically. Next I turned my attention to the bowel on the left side of the abdomen as well as mildly dilated. It was also adhered to the mesentry of the mesocolon as well as to itself. Review of the pelvis showed the bowel would come up out of the pelvis as there was bulky disease with lesions attached to the uterus as well as the pelvic side wall. We suctioned the ascites at this site. I could not fully appreciate if I could possibly eviscerate the distal ileum and for this reason, I persevered with a midline laparotomy extending the two 5- mm incisions at the lower abdomen. We were able to enter into the abdomen and trocars were all removed. I could not bluntly pull the small bowel up and out. We did extend our incision somewhat around the right side of the umbilicus and still with blunt finger dissection, there was seemingly no way to free off any of the small bowel from itself or the mesentry of the colon without significant injury. At this point, I decided to stop the procedure. We reapproximated the fascia along the midline with interrupted #1 Vicryl sutures in a [id number] fashion. Three internal retention sutures using large Prolene suture was utilized. We irrigated the wound and we had irrigated the abdomen as well prior to exiting and reapproximated the wound with skin anish. The additional 5-mm trocar at the left upper quadrant was re- approximated at the fascial layer with an 0 Vicryl as well. Sterile dressing was applied. The patient was woken up in the OR and transferred to the PACU in stable condition. OG tube was removed. Allen catheter remained. [id number]/[facility] #: [id number] MTDD
--- NOTE | 2018-01-21 16:07 | PN ---
Progress Note - Progress Note Date of Service: 01/21/18 SOAP: Subjective: Pt seen and intraoperative finding and prognosis discussed with her and her sister. Some abdo pain. thirsty Objective: tachycardic a and o x3 No additional exam performed Assessment: POD 1 ex lap- diffuse abdominal metastases. Plan: dressing to be removed tomorrow. Hospice/ Palliative care PO as tolerated pain control paracentesis if needed for pain (but not distension) in future
[2018-01-21] MEDS: TPN* 24 HR with Sodium Chloride Conc 23.4%* 100 MEQ, Potassium Chloride TPN 50 MEQ, Pot... CENT\\PICC SCH ×13 (17:02)
[2018-01-21] MEDS: Enoxaparin(*) 40 MG/0.4 ML SYR SUBCUT SCH (20:32)
[2018-01-22] MEDS: Ondansetron INJ* 2 MG/ML VIAL IV PRN ×3 (02:23→20:14)
[2018-01-22] MEDS: PROCHLORPERAZINE INJ 5 MG/ML 2 ML VIAL IV PRN ×3 (05:40→23:34)
--- NOTE | 2018-01-22 09:15 | PN ---
Progress Note - Progress Note Date of Service: 01/22/18 SOAP: Subjective: []comfortable, dry mouth. Discussed that there are no options for therapy. She understands and we discussed hospice. Stopping TPN and if cannot drink, prognosis is days. She has one sister. Discussed hospice residence if available and an optimal discharge plan. Pain controlled today. Acetaminophen (Tylenol Supp*) 650 mg [place] Q4H PRN PRN Reason: FEVER Last Admin: 01/21/18 05:42 Dose: 650 mg Enoxaparin Sodium (Lovenox(*)) 40 mg SUBCUT Q24H [facility] Last Admin: 01/21/18 20:32 Dose: 40 mg Heparin Sodium (Porcine) (Heparin Flush Picc/Ml/Cvc(*)) 1 ml FLUSH 0600,1800 [facility] PRN Reason: Protocol Last Admin: 01/22/18 06:30 Dose: 1 ml Sodium Chloride 100 meq/Potassium Chloride 50 meq/Potassium Phosphate 20 mmole/ Calcium Gluconate 15 meq/Magnesium Sulfate 15 meq/Multivitamins 10 ml/ Trace Metals 1 ml/ Insulin Human Regular 12 units/ Dextrose 1, 000 ml/ Amino Acids 850 ml/Sterile Water 150 ml/ Fat Emulsion Intravenous 250 ml/Nutrition ( Parenteral) 2,353.7392 mls @ 98.021 mls/hr CENT\PICC 1700 SHRUTHI PRN Reason: Protocol Last Admin: 01/21/18 17:02 Dose: 98.021 mls/hr Lorazepam (Ativan Inj*) 0.5 mg IV PUSH Q4H PRN PRN Reason: nausea Last Admin: 01/20/18 12:20 Dose: 0.5 mg Morphine Sulfate (Morphine Inj (Syringe)*) 2 mg IV Q4H PRN PRN Reason: PAIN Ondansetron HCl (Zofran Inj*) 4 mg IV Q6H PRN PRN Reason: NAUSEA Last Admin: 01/22/18 02:23 Dose: 4 mg Prochlorperazine Edisylate (Compazine Inj*) 10 mg IV Q6H PRN PRN Reason: NAUSEA/VOMITING Last Admin: 01/22/18 05:40 Dose: 10 mg Scopolamine (Transderm-Scop 1.5 Mg Patch*) 1 patch TRANSDERM Q72H [facility] Last Admin: 01/20/18 12:18 Dose: 1 patch Objective: [] Vital Signs Temp Pulse Resp BP Pulse Ox 98.3 F 125 17 118/53 97 01/22/18 07:49 01/22/18 07:49 01/22/18 07:49 01/22/18 07:49 01/22/18 07:49 lying flat, comfortable appearing perr eom op very dry CTA ant tachy distended,midline incision with dressing clean,tender throughout no le edema AAOx 3 Assessment: 67 yo F w metastatic breast cancer presenting with a small bowel obstruction with significant tumor burden intra-abdominally that could not be surgically corrected. We discussed hospice today and she is more understanding of prognosis. Will have hospice consult today and discussed residence. She wants to continue TPN for one more bag, today going to tomorrow and then stop. She has things to do to prepare for . She wants to talk to her sister and arrange her will. She has thought about and discussed burial with her sister. 1. TPN today and stop tomorrow 2. Hospice consult 3. No change in pain medication today 4. Stop Scopolamine for dry mouth, can re-start if needed.
[2018-01-22] MEDS: LORazepam INJ* 2 MG/ML 1 ML VIAL IV PUSH PRN (13:28)
[2018-01-22] MEDS: Acetaminophen SUPP* 650 MG SUPP PR PRN (15:35)
--- NOTE | 2018-01-22 16:01 | PN ---
Progress Note - Progress Note Date of Service: 01/22/18 SOAP: Subjective: Patient seen and examined at bedside. Reports intermittent incisional pain and fever. Denies nausea or vomiting. Ambulatory with assistance. Objective: Awake and alert, comfortable in bed. Vitals reviewed, febrile, Tmax 101.8 Abdomen firm, mildly distended. Incisions clean, dry and intact. No erythema, induration or discharge noted. I/O's noted Assessment: POD#2, s/p laparoscopy coverted to laparotomy with REED; metastatic CA Plan: Continue conservative measures. TPN Consider Hospice services
[2018-01-22] MEDS: TPN* 24 HR with Sodium Chloride Conc 23.4%* 100 MEQ, Potassium Chloride TPN 50 MEQ, Pot... CENT\\PICC SCH ×13 (17:34)
[2018-01-22] MEDS: Enoxaparin(*) 40 MG/0.4 ML SYR SUBCUT SCH (20:14)
[2018-01-23] MEDS: Ondansetron INJ* 2 MG/ML VIAL IV PRN ×3 (04:20→20:57)
[2018-01-23] MEDS: Acetaminophen SUPP* 650 MG SUPP PR PRN ×2 (04:24→15:40)
[2018-01-23] MEDS ORDERED: LORazepam INJ* 2 MG/ML 1 ML VIAL IV PUSH PRN (10:05)
[2018-01-23] MEDS: TPN* 24 HR with Sodium Chloride Conc 23.4%* 100 MEQ, Potassium Chloride TPN 50 MEQ, Pot... CENT\\PICC SCH ×13 (17:19)
[2018-01-23] MEDS: PROCHLORPERAZINE INJ 5 MG/ML 2 ML VIAL IV PRN ×2 (17:51→22:57)
[2018-01-23] MEDS: Enoxaparin(*) 40 MG/0.4 ML SYR SUBCUT SCH (21:16)
[2018-01-24] MEDS: Ondansetron INJ* 2 MG/ML VIAL IV PRN ×2 (05:31→14:29)
[2018-01-24] MEDS: PROCHLORPERAZINE INJ 5 MG/ML 2 ML VIAL IV PRN ×2 (08:44→20:39)
[2018-01-24] MEDS ORDERED: D5W 1000 ML BAG* 1,000 ML IV SCH (18:00)
[2018-01-24] MEDS: Enoxaparin(*) 40 MG/0.4 ML SYR SUBCUT SCH ×2 (20:39→20:42)
[2018-01-24] MEDS: Acetaminophen SUPP* 650 MG SUPP PR PRN (21:03)
--- NOTE | 2018-01-24 21:34 | CONS ---
CC: Yuridia Herrera MD; Dr. Manuel Moss * PALLIATIVE CARE CONSULTATION REPORT: DATE OF CONSULTATION: 01/24/18 PRIMARY CARE PHYSICIAN: Yuridia Herrera MD REASON FOR CONSULTATION: Hospice evaluation. HISTORY OF PRESENT ILLNESS: This is a 67-year-old female with a past medical history of widely metastatic breast cancer, who delayed initial workup and treatment for many years and recently just started treatment for her symptomatic ascites and at that point agreed to workup an evaluation. She tolerated her 1 round of chemo with Taxol and was having recurrent paracentesis for symptomatic relief. She went in to see her oncologist on 01/12/17, Dr. Moss, for worsening abdominal discomfort, nausea, and inability to tolerate any p.o. At that point, she was admitted for evaluation for bowel obstruction. 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 She was seen by Surgery, Dr. Calhoun, on 01/19/18 due to having a repeat CAT scan done on 01/18/18 that showed ileus versus small bowel obstruction. The patient at first had a paracentesis done as it was thought that this may improve what was thought to be an ileus. The patient, despite having 3 L removed, continued to have significant obstipation and nausea and they went for a diagnostic laparoscopy, possible laparotomy as a palliative procedure. Unfortunately, on 01/20/18, Dr. Calhoun did take her to the OR; however, the findings were diffuse metastatic disease with peritoneal attachments, additional lesions and bulky disease throughout the pelvis and abdomen along with a small bowel colon and mesentery of bolus, unable to perform any intervention. At this point, Oncology spoke with the patient regarding hospice end of life care. On my encounter, the patient is very appreciative of the palliative care consult. She states she does live alone, understands that she will not be able to go home and manage on her own. She states she does have pain; however, it is manageable and she cannot tolerate any opioids and is not interested in trying as it makes her nausea worse. Currently, her nausea is also , was not interested in trying any new medications. We talked about hospice and the possibility of going to the hospice residence at length. Her sister, Verona, who is her healthcare proxy, is supposed to come in today and would like to meet with her before making decisions to agree to go to the residence. The patient's DNR/DNI was also confirmed today. The patient also understands that she will have to stop the TPN prior to going to the hospice residence. Otherwise, remaining review of systems is negative. PAST MEDICAL HISTORY: 1. Widely metastatic breast cancer with refractory ascites and now with diffuse intraabdominal involvement and small bowel obstruction. 2. Asthma. INPATIENT MEDICATIONS: 1. Tylenol 650 mg as needed. 2. D5W at 50 cc an hour 3. Lovenox 40 mg subcu q.24 hours. 4. Lorazepam 0.5 mg IV as needed for anxiety. 5. Morphine 2 mg IV q.4 hours as needed. 6. Zofran 4 mg IV q.6 hours as needed. 7. Compazine 10 mg q.6 hours as needed. 8. TPN. ALLERGIES: LATEX, CEPHALEXIN, CODEINE, CONTRAST, PENICILLIN, PROCAINE, SULFA, TERFENADINE, CLARITHROMYCIN, ERYTHROMYCIN, NAPROXEN, TETRACYCLINE, IV CONTRAST, NOVOCAINE. FAMILY HISTORY: Reviewed and noncontributory. SOCIAL HISTORY: The patient was living at home. She states she has been unemployed since 2003 when taking care of her father. She used to be a musician and a teacher. She has no children. Her healthcare proxy is her sister, Verona. MOLST form is confirmed DNR/DNI. REVIEW OF SYSTEMS: A 14-point review of systems is mentioned in the HPI, otherwise negative. PHYSICAL EXAM: Vitals: Temp 98.5, pulse rate 115, respiratory rate 18, oxygen saturation 99% on room air, blood pressure 120/50. General: A frail cachectic female, in no acute distress. HEENT: Head, normocephalic. Bitemporal muscle wasting noted. Pupils are equal and reactive. Oropharynx, mucous membranes dry. Lips are dry. Cardiac: Tachycardia with systolic murmur, most prominent at the left sternal base. Respiratory: Diminished breath sounds. No wheezes, rhonchi, or rales. Abdomen: Do not appreciate any bowel sounds. Distended, mildly firm. No rebound or guarding. Extremities: +2 pretibial edema. Neurologic: Alert and oriented x3. No gross focal neurologic deficits. Diffuse generalized weakness. LABORATORY DATA: From 01/21/18, white count 2.1, hemoglobin 9.5, hematocrit 29. Sodium 130, potassium 4.4, chloride 106, bicarb 20, BUN 25, creatinine 0.63. Her albumin back on 01/19/18 was 2.2. ASSESSMENT: This is a 67-year-old female with widely metastatic breast cancer now with a small bowel obstruction and significant intraabdominal tumor burden that is not able to be surgically corrected. Hospice has been presented to her. She understands this is fairly her only option. She is hesitant to make a decision without getting her sister involved in the discussion, which is understandable. She is also hesitant to discontinue the TPN, but she is aware that once she enrolls in the hospice that TPN is usually not continued. She is interested in the residence as she notes that she cannot manage to go back home and financially as well is an issue for her. I will follow up with Dr. Warren regarding hospice residence and would recommend Social Work follow up with [facility] in the morning to determine if the patient is willing to go to residence and if the residence has accepted her. I followed up with Dr. Moss as well. TIME SPENT: Greater than 60 minutes were spent doing the consultation, more than half the time spent in direct patient contact. [id number]/[facility] #: [id number] RUPINDER
[2018-01-25] MEDS: Ondansetron INJ* 2 MG/ML VIAL IV PRN ×2 (02:15→14:18)
[2018-01-25] MEDS ORDERED: D5W 1000 ML BAG* 1,000 ML IV SCH ×2 (10:34→11:00)
--- NOTE | 2018-01-25 10:40 | PN ---
Progress Note - Progress Note Date of Service: 01/25/18 SOAP: Subjective: []No complaints today. Very tired and hopes for limited interventions. Has been declining pain meds, though is comfortable if doesn't move. Feels some "grumbling" in her stomach and wonders if she may have a BM. Feels like LE edema may be worse. Notified by case management that a hospice residence bed may be available, Tabitha is glad for this but hopes to go tomorrow. Medications: Acetaminophen (Tylenol Supp*) 650 mg PA Q4H PRN PRN Reason: FEVER Last Admin: 01/24/18 21:03 Dose: 650 mg Heparin Sodium (Porcine) (Heparin Flush Picc/Ml/Cvc(*)) 1 ml FLUSH 0600,1800 [facility] PRN Reason: Protocol Last Admin: 01/25/18 06:13 Dose: 1 ml Dextrose (D5w 1000 Ml Bag*) 1,000 mls @ 25 mls/hr IV PER RATE SHRUTHI Lorazepam (Ativan Inj*) 0.5 mg IV PUSH Q4H PRN PRN Reason: ANXIETY Morphine Sulfate (Morphine Inj (Syringe)*) 2 mg IV Q4H PRN PRN Reason: PAIN Ondansetron HCl (Zofran Inj*) 4 mg IV Q6H PRN PRN Reason: NAUSEA Last Admin: 01/25/18 02:15 Dose: 4 mg Prochlorperazine Edisylate (Compazine Inj*) 10 mg IV Q6H PRN PRN Reason: NAUSEA/VOMITING Last Admin: 01/24/18 20:39 Dose: 10 mg Objective: [] Vital Signs Temp Pulse Resp BP Pulse Ox 99.6 F 107 17 111/60 96 01/25/18 08:14 01/25/18 08:14 01/25/18 08:14 01/25/18 08:14 01/25/18 08:14 A&Ox3, EOMI, neuro grossly non-focal resp. even and non-labored without audible wheeze or rhonchi Dry mucosa Frail appearing with +edema bilat. LEs approx. +3 non-pitting Assessment: []67 yo female with metastatic breast cancer c/b abd. implants causing obstruction. She is not a candidate for further therapy and is transitioning to comfort measures only. Hope for d/c to hospice residence. Plan: []1. Decrease fluid rate from 50 mL/hr to 25 mL/hr 2. Stop DVT prophylaxis 3. Mouth care enc.'d D/C planning: likely d/c to hospice residence by tomorrow
[2018-01-26 00:25] VITALS: BP 118/57
--- NOTE | 2018-01-27 04:36 | DS ---
CC: Dr. Moss; Dr. Calhoun* DISCHARGE SUMMARY: DATE OF ADMISSION: 01/12/18 DATE OF DISCHARGE: 01/26/18 PRIMARY ONCOLOGIST AND ATTENDING PHYSICIAN: Manuel Moss MD* (dictated by LISA Vaughan). CONSULTING SURGEON: Dr. Calhoun. DISCHARGING PROVIDER: LISA Vaughan PRIMARY DISCHARGE DIAGNOSES: 1. Unresolved small bowel obstruction secondary to extensive intraabdominal metastatic disease. 2. Metastatic breast cancer. 3. Thrush. DISCHARGE MEDICATIONS: 1. Acetaminophen suppository 650 mg per rectum every 4 hours as needed for pain or fever. 2. Ativan 0.5 mg sublingual every 4 hours as needed for anxiety. 3. Morphine concentrate 5 mg p.o. or sublingual every 2 hours as needed for pain. 4. Zofran 4 mg p.o. q.6 hours as needed for nausea. HOSPITAL IMAGIN. KUB, 01/12/18, which demonstrates dilated loops of small bowel with dilated stomach suspicious for small bowel obstruction. KUB, 01/15/17, shows nonspecific bowel gas pattern. 2. CT abdomen and pelvis, 01/15/18, demonstrates bilateral pleural effusions, no evidence of persistent bowel obstruction. There was diffuse ascites, evidence of metastasis of the lumbar and sacral spine as well as the pelvis and proximal femur as well as prominent appearing ovaries suspicious for possible malignancy. 3. CT of the brain, 01/17/18, shows no acute intracranial findings, evidence of frontal sinusitis. 4. KUB, 01/17/18, shows mild interval increase in size of the loop of small bowel in the left mid abdomen, consider closed loop obstruction versus low colonic ileus. 5. CT of the abdomen and pelvis, 01/18/18, shows evidence for third spacing/ anasarca and decreased intravascular volume. There is a small bowel obstruction versus ileus, but no discrete transition point identified. Large ascites with interval increase in bilateral pleural effusions and a small pericardial effusion is noted. 6. Ultrasound of the abdomen shows ascites. 7. KUB, 01/20/18, demonstrates a persistent dilated loop of small bowel within the mid abdomen. HOSPITAL COURSE: This is a now 68-year-old female with metastatic breast cancer , who was admitted to the hospital with complaints of abdominal pain and bloating and no bowel movement for several days prior to admission. KUB was suggestive of a possible small bowel obstruction and the patient was also complaining of intractable nausea and frequent vomiting. For these reasons, an NG tube was placed with some relief of her abdominal discomfort and vomiting, but she had persistent abdominal distention. The patient had known intraperitoneal metastasis with associated ascites thought to be complicating her small obstruction and the patient subsequently underwent paracentesis with a yield of 4 L on 01/14/18. The patient noted no bowel movement following the paracentesis. Repeat imaging, however, demonstrated the small bowel was decompressed and the patient did note a small amount of flatus passing and for this reason, an NG tube was discontinued. Unfortunately, her abdominal distension with associated nausea and vomiting quickly recurred and repeat imaging demonstrated evidence of recurrent small bowel obstruction. General Surgery was consulted, who repeated paracentesis again without positive effect. The patient subsequently went to the operating room with plans for exploratory laparoscopy, which was converted to laparotomy, which demonstrated extensive metastatic disease with bulky tumors and peritoneal studding, but no obvious transition point responsible for her small bowel obstruction. Due to the extensive nature of her disease and inability to relieve her small bowel obstruction, recommendations were made to proceed with palliative measures. The patient met with palliative care physician, Dr. Cook, and the patient received a bed offer at the [facility]. Prior to discharge, the patient was alert without nausea or vomiting and very little pain. She was not utilizing her p.r.n. pain medications. She had some abdominal bloating, but her symptoms were well controlled. DISPOSITION/FOLLOWUP PLAN: The patient is being discharged to [facility]. LISA VAUGHAN [id number]/[facility] #: [id number] MTDD
== END 2018-01-26 10:55 | disposition hospice, inpatient (51) | DRG 356 ==
LOC: MED 18:33
PROVIDERS: ADMIT Internal Medicine Hematology & Oncology; ATTEND Internal Medicine Hematology & Oncology
PROC: 0D9670Z Drainage of Stomach with Drainage Device, Via Natural or Artificial Opening (ICD-10-PCS; principal; 2018-01-12)
PROC: 3E0336Z Introduction of Nutritional Substance into Peripheral Vein, Percutaneous Approach (ICD-10-PCS; 2018-01-13)
PROC: 02HV33Z Insertion of Infusion Device into Superior Vena Cava, Percutaneous Approach (ICD-10-PCS; 2018-01-13)
PROC: 0WJG0ZZ Inspection of Peritoneal Cavity, Open Approach (ICD-10-PCS; 2018-01-14)
PROC: 0WJJ4ZZ Inspection of Pelvic Cavity, Percutaneous Endoscopic Approach (ICD-10-PCS; 2018-01-14)
PROC: 0W9G3ZZ Drainage of Peritoneal Cavity, Percutaneous Approach (ICD-10-PCS; 2018-01-14)
PROC: 0W9G3ZZ Drainage of Peritoneal Cavity, Percutaneous Approach (ICD-10-PCS; 2018-01-14)
DX: C78.6 Secondary malignant neoplasm of retroperitoneum and peritoneum (principal); E43 Unspecified severe protein-calorie malnutrition; J90 Pleural effusion, not elsewhere classified; D61.810 Antineoplastic chemotherapy induced pancytopenia; C77.3 Secondary and unspecified malignant neoplasm of axilla and upper limb lymph nodes; C78.5 Secondary malignant neoplasm of large intestine and rectum; C79.51 Secondary malignant neoplasm of bone; E83.42 Hypomagnesemia; K56.7 Ileus, unspecified; R18.8 Other ascites; I31.3 Pericardial effusion (noninflammatory); C50.919 Malignant neoplasm of unspecified site of unspecified female breast; B37.9 Candidiasis, unspecified; J45.909 Unspecified asthma, uncomplicated; R14.0 Abdominal distension (gaseous); K59.00 Constipation, unspecified; Z90.12 Acquired absence of left breast and nipple; Z88.0 Allergy status to penicillin; Z88.8 Allergy status to other drugs, medicaments and biological substances; Z88.1 Allergy status to other antibiotic agents; Z88.2 Allergy status to sulfonamides; Z91.041 Radiographic dye allergy status; Z91.040 Latex allergy status; Z80.3 Family history of malignant neoplasm of breast; Y92.9 Unspecified place or not applicable; Z53.31 Laparoscopic surgical procedure converted to open procedure; Z17.0 Estrogen receptor positive status [ER+]; R11.0 Nausea; E87.6 Hypokalemia; T45.1X5A Adverse effect of antineoplastic and immunosuppressive drugs, initial encounter; R73.9 Hyperglycemia, unspecified; R00.0 Tachycardia, unspecified; R06.6 Hiccough; Z66 Do not resuscitate; Z68.21 Body mass index [BMI] 21.0-21.9, adult
CPT/HCPCS: 36415; 49082; 70450; 74018; 74019; 74176; 76705; 80048; 80053; 83735; 84100; 85025; 85027; 85060; 87070; 87205; 99223; 99231; 99232; 99233; 99239; A9270-GY; C1751; J0330; J0780; J1580; J1650; J2060; J2250; J2405; J2704; J2765; J2997; J3010; J3475; J3480; J3490